=== PATIENT | male | born 1960 | race Caucasian/White ===

== ENCOUNTER 2017-01-16 19:49 | Inpatient (IN) | payer OTHER ==
[~2017-01-16] VITALS: Ht 177.8 cm; Wt 73.0 kg
[~2017-01-16 19:49] MED LIST: LISI-360 PO; LORA-475 PO; NEXI40CA PO
[2017-01-16 21:00] VITALS: BP 145/77; PULSE 93; RESP 21; TEMP 98; O2SAT 97
[2017-01-16] MEDS ORDERED: HYDROmorphone HCL PF 2 MG/ML VIAL IV PUSH PRN (21:15)
[2017-01-16] MEDS ORDERED: cloNIDine HCL 0.1 MG TAB PO PRN (21:15)
[2017-01-16] MEDS ORDERED: NALOXONE HCL 0.4 MG/ML AMP IV PRN (21:15)
[2017-01-16] MEDS: LORazepam 1 MG TAB PO SCH (21:15)
[2017-01-16] MEDS ORDERED: ONDANSETRON HCL 4 MG/2 ML VIAL IVP PRN ×2 (21:15→22:00)
[2017-01-16] MEDS ORDERED: ACETAMINOPHEN 325 MG TAB PO PRN (21:15)
[2017-01-16] MEDS ORDERED: SODIUM CHLORIDE 0.9% FLUSH 10 ML FLUSH IV FLUSH PRN (21:15)
[2017-01-16] MEDS: busPIRone HCL 5 MG TAB PO SCH (22:23)
--- NOTE | 2017-01-16 22:30 | MH ---
cc: BRIONNA BRITO M.D. DATE OF ADMISSION: 01/16/2017 ADMITTING DIAGNOSIS: Acute kidney injury requiring hemodialysis, empyema status post decortication. HISTORY OF PRESENT ILLNESS: This 56 year-old white male well-known to the undersigned physician, has a history of hypertension, anxiety and gastroesophageal reflux disease. In mid November of this year he was in the [facility] on a vacation. He lost his balance on a boat and struck the left lateral posterior ribs on a piece of the boat. He had sudden onset of severe pain. He had no shortness of breath. It was difficult to find a comfortable position. He tried to continue with the vacation for a couple of days but the pain persisted. He saw a local physician who recommended the at he return to [place] as soon as possible. The patient was transported by air ambulance to the [facility] and was admitted to [facility] where he was found to have fractures of the left posterior 9th, 10th and 11th ribs, with an associated moderate size left hemothorax. There was near complete collapse of the left lower lobe. There was also a focal contusion of the anterior left upper lobe. The patient was admitted to the hospital, had a chest tube placed. He was given pain medications. After several days the chest tube was removed and he was discharged home. The patient states that initially he seemed to be doing better, however, he began to feel extremely fatigued. He was feeling lightheaded and had generalized weakness. The patient was in the [facility] to begin a program for alcohol addiction. He presented to the facility but he had such a low blood pressure they were unable to treat him. He was sent to the emergency department where he was found to be severely hypotensive. CT scan revealed a recurrent area of fluid accumulation in the left pleural space. He was admitted to the hospital where he ultimately underwent decortication for empyema. The patient was placed on IV antibiotics during the hospitalization. He seemed to be improving, however, following the decortication procedure, he developed acute kidney injury and had a creatinine of greater than 5.9. He subsequently was placed on hemodialysis. He has received four treatments of hemodialysis in the last two weeks. The patient still is having some fluid retention. He was started on Lasix 80 milligrams daily over the last several days and his urine output is improving. He states that he put out 1400 cc of urine yesterday. He has a PermaCath in the right subclavian area. The patient had contacted the undersigned physician on the day of admission and stated that he wanted to be transferred up to the [facility] to complete his treatment and to arrange outpatient hemodialysis. The undersigned physician spoke with the attending physician down in [place], and they did not feel that the patient was medically stable enough to be discharged home so they asked for a transfer. The patient has had recurrent anemia and has received three transfusions of packed red blood cells. His matty hemoglobin was 5.9. He did receive a transfusion yesterday and the last hemoglobin done earlier today was 8.9. He is on an iron supplement as well as thiamine and folic acid. He has been receiving erythropoietin with hemodialysis. The patient still complains of severe pain in the left chest. The pain is along the entire left lateral posterior chest wall. He has a large incision measuring approximately 12 cm in the left chest wall which is healing, and he had three chest tubes which were removed within the last couple of days. He has pain with any movement or deep breathing. The patient states he has been receiving narcotic analgesics at the other hospital and has been receiving nebulizer treatments and incentive spirometry. PAST MEDICAL HISTORY: The patient's past medical history is significant for: 1. Anxiety 2. Hypertension 3. Hyperlipidemia 4. Gastroesophageal reflux disease. 5. History of lower gastrointestinal hemorrhage. 6. He has a history of sleep apnea but he has not used a C-PAP in years. PAST SURGICAL HISTORY: His only surgery was the decortication procedure done within the last two weeks. CURRENT MEDICATIONS: 1. Tylenol 650 mg every 4 hours as needed for mild pain. 2. Percocet 5/325 mg 1-2 tablets every 4 hours as needed for pain. 3. Dilaudid 1 mg IV every 3 hours as needed for severe pain. 4. Metoprolol tartrate 25 mg twice daily. 5. Furosemide 80 mg daily. 6. Hydralazine 10 mg every 6 hours as needed for elevated systolic blood pressure. 7. Lorazepam 1 milligram, 1 tablet every 8 hours scheduled. 8. DuoNebs 1 unit dose every 6 hours scheduled. 9. Benadryl 12.5 mg IV every 6 hours as needed for pruritus. 10. Dicyclomine 10 milligrams, 1 tablet three times a day before meals. 11. Colace 100 mg twice daily. 12. Florastor 250 mg 1 capsule twice daily. 13. BuSpar 5 mg 1 tablet every 8 hours. 14. Temazepam 15 milligrams one tablet at bed time as needed for insomnia. 15. Escitalopram 10 milligrams one tablet daily. 16. Erythropoietin 10,000 units per mL. One mL every Sunday and Sunday subcutaneously. 17. Ferrous sulfate 325 milligrams every 8 hours. 18. Folic acid 1 milligram daily. 19. Multivitamin with minerals one daily. 20. Nephrocaps one tablet daily. 21. Nicoderm CQ 21 milligram patch, apply one patch daily. 22. Zofran 4 milligrams IV every 8 hours as needed for nausea and vomiting. 23. Thiamine 100 milligrams one tablet daily. ALLERGIES: NO KNOWN DRUG ALLERGIES. FAMILY HISTORY: Positive for father with prostate cancer and cataracts. Mother had osteoarthritis, diabetes, myocardial infarction, and hypertension. He has siblings with osteoarthritis, gout and hypertension. SOCIAL HISTORY: He is . He smokes one to two packs of cigarettes a day, but he has not smoked in the last three weeks. He was consuming 5-6 ounces of alcohol every day with greater amounts intermittently. He has not had any alcohol since mid November 2016. He currently lives alone. 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 REVIEW OF SYSTEMS The patient states he is having regular bowel movements. He has had no abdominal pain. He is voiding without difficulty. He has had no lateralizing deficits. No headaches, no visual changes, no difficulty swallowing. No GERD symptoms. No nausea or vomiting. He states that he has had some difficulty sleeping. He is anxious at times, however, he receives the Ativan which helps. PHYSICAL EXAMINATION: Vital signs: The patient's heart rate was 74, respirations 16, blood pressure was 145/84. Temperature afebrile. GENERAL: This is a well-developed, well-nourished middle-aged white male, in moderate distress due to left-sided chest pain with movement. HEENT: The pupils are equal round reactive to light. Extraocular movements intact. Sclerae anicteric. There is bilateral pterygia present. Nares are patent without discharge. Mouth and throat reveal moist mucous membranes. No erythema, exudates. Dentition is good. NECK: Supple without lymphadenopathy, JVD, bruits or thyromegaly. CARDIOVASCULAR: Regular rate and rhythm without murmurs, rubs or gallops. LUNGS: Clear to auscultation bilaterally without rales, rhonchi or wheezing. CHEST: The left chest wall reveals a 12 cm long incision along the lateral mid chest. It has Steri-Strips in place. There are there small incisions measuring approximately 1 to 2 cm that area consistent with the drain incisions. They are all healing well without erythema, edema, induration. ABDOMEN: Soft, nontender, nondistended. Bowel sounds present, no masses palpable. No hepatosplenomegaly. /RECTAL: Deferred. EXTREMITIES: Lower extremities reveal 2+ pulses, no clubbing, cyanosis or edema. No calf tenderness. No Homans' sign. SKIN: Warm and dry. No significant rashes or lesions. NEUROLOGIC: The patient is awake, alert, oriented x3. Speech intact. Cranial nerves intact. No lateralizing deficits. No short-term memory or cognitive deficits. Mood is good. Affect appropriate. LABORATORY DATA: CBC, CMP, UA are pending, as is CT scan of the chest. IMPRESSION AND PLAN 1. This 56 year-old white male is transferred from [facility] in [place], [place] to continue with treatment of his acute kidney injury requiring hemodialysis. I have consulted nephrology to assist with arranging for hemodialysis here at this facility and ultimately as an outpatient. The patient is making urine at this time. Will continue with the Lasix 80 milligrams daily. Will need to monitor renal failure and electrolytes. 2. Anemia. The patient has an anemia which is likely a combination due to acute kidney disease as well as from his recent surgery and the hemothorax. The patient received three previous transfusions, the last of which was performed yesterday. His last hemoglobin was 8.9 this morning. Will repeat H&H in the morning. He will continue with the iron supplement in the form of ferrous sulfate, thiamine and the folic acid. He was receiving erythropoietin twice weekly. Any orders for this medication, will defer to nephrology. 3. Left-sided rib fractures, status post hemothorax and empyema. The patient is status post decortication. His wound appears to be healing well. Will order a CT scan of the chest to further evaluate for any reaccumulation of any fluid in the pleural space. I have consulted cardiothoracic surgery to give their opinion as to anything further needing to be done for the patient in this regard. The patient is still having significant pain in the left chest wall which is likely a combination of the procedure and the rib fractures. I have ordered oxycodone on a scheduled basis every six hours and then will provide him with Dilaudid for breakthrough pain. Will need to establish his analgesic need in order to control his pain. I have encouraged the patient to continue with incentive spirometry and will continue with the nebulizer treatments as he was receiving at the other facility. 4. History of anxiety disorder. The patient was normally receiving Lorazepam 2 milligrams 3x a day, however, with his renal failure, his dosage was apparently reduced at the previous facility. I am going to continue lorazepam 1 milligram every 12 hours. The patient also was receiving Escitalopram at the other facility. Will continue with 10 milligrams daily. 5. History of GERD. The patient has not been receiving any PPI and seems to be asymptomatic at this time. Will hold the PPI for now. 6. Hypertension. The patient is receiving metoprolol. He states that his blood pressure has been variable depending on his level of pain. I have ordered the metoprolol tartrate 25 milligrams twice daily and some clonidine to use as needed for systolic blood pressure greater than 160. He is also receiving the furosemide which should help his blood pressure. 7. Constipation. The patient is at high-risk for constipation due to the narcotic analgesics. At this point will provide Colace twice daily and if necessary provide additional laxatives. 8. DVT prophylaxis. The patient is recently status post surgery on the left chest wall. I will discuss with cardiothoracic surgery. If they feel that he is a candidate for anticoagulation in the form of Lovenox, I am concerned because of his recent hemothorax, however, will provide knee high, sequential compression devices for DVT prophylaxis. Will encourage the patient to be out of bed as much as possible. I have discussed the plan of care with the patient who expresses understanding and agreement. 75 minutes was spent face to face with the patient with over 50% of the time spent in counseling. MD SAVAGE Saucedo/DANDRE /9:29 PM /9:56 PM MTDGina
[2017-01-17] VITALS (8 sets, daily range): BP systolic 106–169; BP diastolic 66–92; PULSE 73–98; RESP 16–20; TEMP 98–98.9; O2SAT 94–99
--- NOTE | 2017-01-17 00:58 | RADRPT ---
EXAM DATE/TIME: 01/17/2017 00:32 [facility] COMPARISON: No previous studies available for comparison. INDICATIONS : S/P left decortication due to empyema. RADIATION DOSE: 4.52 CTDIvol (mGy) MEDICAL HISTORY : Cerebrovascular disease. Hypertension. Renal failure, chronic. GERD SURGICAL HISTORY : Left Thoracotomy ENCOUNTER: Initial ACUITY: 1 day PAIN SCALE: 0/10 LOCATION: Left chest TECHNIQUE: Volumetric scanning of the chest was performed. Using automated exposure control and adjustment of t he mA and/or kV according to patient size, radiation dose was kept as low as reasonably achievable to obtain optimal diagnostic quality images. FINDINGS: Multiple displaced rib fractures are seen on the left. There is a fluid air cavity in the left a pex measures 8.5 cm in size with scattered areas of gas bubbles within the pleural space on the left side in this patient status post decortication of empyema. Hazy groundglass opacities seen in right u pper lobe most likely inflammatory with mild involvement of right middle lobe. There is also parenchy mal infiltrate in left lower lobe. There is a small loculated pleural effusion particularly posterior ly. There are small lymph nodes in the region of the AP window the largest measures 1.6 cm in size. M ultiple hepatic cysts are seen. CONCLUSION: 1. Bilateral parenchymal infiltrates. 2. Air fluid cavity left apex with gas bubbles and slight pleural effusion on the left side. Vignesh Mancera MD on January 17, 2017 at 0:51 Board Certified Radiologist. This report was verified electronically.
[2017-01-17] MEDS ORDERED: HYDROmorphone HCL PF 2 MG/ML VIAL IV PUSH PRN (01:15)
[2017-01-17] MEDS: busPIRone HCL 5 MG TAB PO SCH ×3 (04:29→21:04)
[2017-01-17 04:53] LABS: BLOOD, URINE NEG (NEG); COMMENT (UR) CULT NOT INDICATED; CULTURE IF INDICATED CULT NOT INDICATED; GLUCOSE,URINE NEG (NEG); KETONE, URINE NEG (NEG); NITRITE,URINE NEG (NEG); PH, URINE 7.5 (5.0-8.5); URINE COLOR LIGHT-YELLOW (YELLW/STRAW)
[2017-01-17 07:46] LABS: AUTOMATED NEUTROPHIL # 5.9 TH/MM3 (1.8-7.7); BASOPHIL # 0.1 TH/MM3 (0-0.2); BASOPHIL % 1.2 % (0.0-2.0); EOSINOPHIL # 0.7 TH/MM3 (0-0.4); EOSINOPHIL % 7.4 % (0.0-4.0); HEMATOCRIT 25.9 % (39.0-51.0); HEMO FLAGS DIFF FINAL; LYMPH % 12.9 % (9.0-44.0); LYMPHOCYTE # 1.2 TH/MM3 (1.0-4.8); MEAN CELL VOLUME 86.8 FL (80.0-100.0); MEAN CORPUSCULAR HEMOGLOBIN 29.8 PG (27.0-34.0); MEAN CORPUSCULAR HGB CONC 34.4 % (32.0-36.0); NEUT % 65.5 % (16.0-70.0); PLATELET COUNT 332 TH/MM3 (150-450); RED BLOOD COUNT 2.98 MIL/MM3 (4.50-5.90); RED CELL DISTRIBUTION WIDTH 17.4 % (11.6-17.2)
[2017-01-17 08:26] LABS: ALT (GPT) 19 U/L (12-78); ANION GAP 10 MEQ/L (5-15); BICARBONATE 28.9 MEQ/L (21.0-32.0); BLOOD UREA NITROGEN 33 MG/DL (7-18); CHLORIDE 102 MEQ/L (98-107); GLOMERULAR FILTRATION RATE 14 ML/MIN (>89); POTASSIUM 3.6 MEQ/L (3.5-5.1); SODIUM (NA) 141 MEQ/L (136-145)
[2017-01-17] MEDS ORDERED: SODIUM CHLOR 0.9% 1000 ML INJ 1,000 ML IV PRN ×3 (08:26)
[2017-01-17] MEDS ORDERED: ONDANSETRON HCL 4 MG/2 ML VIAL IV PRN (08:30)
[2017-01-17] MEDS ORDERED: MANNITOL 12.5 GM/50 ML VIAL IV PRN (08:30)
[2017-01-17] MEDS ORDERED: cloNIDine HCL 0.1 MG TAB PO PRN (08:30)
[2017-01-17] MEDS ORDERED: diphenhydrAMINE HCL 25 MG CAP PO PRN (08:30)
[2017-01-17] MEDS ORDERED: GELATIN 12 MM/7 MM FOAM TOP PRN (08:30)
[2017-01-17] MEDS ORDERED: ACETAMINOPHEN 325 MG TAB PO PRN (08:30)
[2017-01-17] MEDS ORDERED: SODIUM CHLORIDE 0.9% FLUSH 10 ML FLUSH IV FLUSH PRN (08:30)
[2017-01-17] MEDS ORDERED: NITROGLYCERIN 0.4 MG SL 25 TABS/BTL SL PRN (08:30)
[2017-01-17] MEDS ORDERED: ALBUMIN HUMAN 25% 25 GM/100 ML BAGP IV PRN (08:30)
[2017-01-17] MEDS ORDERED: HEPARIN SODIUM - IV 10,000 UNITS/10 ML VIAL IVF PRN (08:30)
[2017-01-17 08:35] LABS: ALKALINE PHOSPHATASE 77 U/L (45-117); AST (GOT) 12 U/L (15-37); TOTAL BILIRUBIN ADULT 0.3 MG/DL (0.2-1.0)
[2017-01-17] MEDS: RESP: ALBUTEROL 2.5 MG/IPRATROPIUM 0.5 MG NEB (SCH) NEB ×3 (08:42→21:23)
[2017-01-17] MEDS ORDERED: METOPROLOL TARTRATE 25 MG TAB PO SCH (09:00)
[2017-01-17] MEDS: VITAMIN B CMPLX/VITC/FOLIC AC CAP PO SCH (09:54)
[2017-01-17] MEDS: FOLIC ACID 1 MG TAB PO SCH (09:54)
[2017-01-17] MEDS: DOCUSATE SODIUM 100 MG CAP PO SCH ×2 (09:54→21:03)
[2017-01-17] MEDS: ESCITALOPRAM OXALATE 10 MG TAB PO SCH (09:54)
[2017-01-17] MEDS: LORazepam 1 MG TAB PO SCH ×2 (09:55→21:04)
[2017-01-17] MEDS: FUROSEMIDE 80 MG TAB PO SCH (09:55)
[2017-01-17] MEDS: THIAMINE HCL 100 MG TAB PO SCH (09:55)
[2017-01-17] MEDS: FERROUS SULFATE 325 MG (65 MG ELEMENTAL IRON) TAB PO SCH ×2 (09:55→21:03)
[2017-01-17] MEDS: SODIUM CHLORIDE 0.9% FLUSH 10 ML FLUSH IV FLUSH SCH ×2 (09:56→21:04)
--- NOTE | 2017-01-17 12:50 | HHI.PR ---
Subjective Remarks Patient reports left chest pain was not adequately controlled overnight. Dilaudid helped but for only 1 hr. Voiding well. Has had 1500 cc UOP since admission. OOB in chair. BP higher this am. Denies SOB at rest, nausea or emesis. Current Medications Medications (Trade) Dose Ordered Sig/Jayson Route Start Time Stop Time Status Last Admin (NS Flush) 2 ml UNSCH PRN IV FLUSH 01/16/17 21:15 (NS Flush) 2 ml BID IV FLUSH 01/17/17 09:00 01/17/17 09:56 (Tylenol) 650 mg Q4H PRN PO 01/16/17 21:15 (Narcan Inj) 0.4 mg UNSCH PRN IV 01/16/17 21:15 (Colace) 100 mg BID PO 01/17/17 09:00 01/17/17 09:54 (Lasix) 80 mg DAILY PO 01/17/17 09:00 01/17/17 09:55 (Catapres) 0.1 mg Q8HR PRN PO 01/16/17 21:15 (Ativan) 1 mg Q12HR PO 01/16/17 21:15 01/17/17 09:55 (Buspar) 5 mg Q8HR PO 01/16/17 22:00 01/17/17 04:29 (Lexapro) 10 mg DAILY PO 01/17/17 09:00 01/17/17 09:54 (Ferrous Sulfate) 325 mg BID PO 01/17/17 09:00 01/17/17 09:55 (Folate) 1 mg DAILY PO 01/17/17 09:00 01/17/17 09:54 (Nephrocaps) 1 cap DAILY PO 01/17/17 09:00 01/17/17 09:54 (Vitamin B1) 100 mg DAILY PO 01/17/17 09:00 01/17/17 09:55 Ondansetron HCl 4 mg 4 mg Q8HR PRN IVP 01/16/17 22:00 (NS 1000 ml Inj) 1,000 ml @ 0 mls/hr Q0M PRN IV 01/17/17 08:26 Heparin Sodium (Porcine) 8000 units 8,000 units UNSCH PRN IVF 01/17/17 08:30 Sodium Chloride 1,000 ml @ 200 mls/hr Q5H PRN IV 01/17/17 08:26 (NS 1000 ml Inj) 1,000 ml @ 0 mls/hr Q0M PRN IV 01/17/17 08:26 (Mannitol Inj) 12.5 gm UNSCH PRN IV 01/17/17 08:30 (Albumin 25% Inj) 25 gm UNSCH PRN IV 01/17/17 08:30 (NS Flush) 5 ml UNSCH PRN IV FLUSH 01/17/17 08:30 (Heparin Inj) UNSCH PRN .XX 01/17/17 08:30 (Gentamicin (Dialysis) Inj) 20 mg UNSCH PRN IV 01/17/17 08:30 (Zofran Inj) 4 mg UNSCH PRN IV 01/17/17 08:30 (Tylenol) 650 mg UNSCH PRN PO 01/17/17 08:30 (Benadryl) 25 mg UNSCH PRN PO 01/17/17 08:30 (Nitrostat Sl) 0.4 mg UNSCH PRN SL 01/17/17 08:30 (Catapres) 0.1 mg UNSCH PRN PO 01/17/17 08:30 (Epogen Inj) 4,000 units UNSCH PRN IV 01/17/17 08:30 (Gelfoam 12 Mm/7 Mm Top) 1 foam UNSCH PRN TOP 01/17/17 08:30 (Dilaudid Pf Inj) 1 mg Q3HR PRN IV PUSH 01/17/17 14:00 (Lopressor) 50 mg Q12HR PO 01/17/17 21:00 (Roxicodone) 30 mg Q6H PO 01/17/17 12:30 Objective Vital Signs Date Time Temp Pulse Resp B/P Pulse Ox O2 Delivery O2 Flow Rate FiO2 01/17/17 08:00 98.2 80 18 162/92 99 01/17/17 04:00 98.9 88 20 169/81 96 01/17/17 00:00 98.2 90 20 144/74 97 01/16/17 21:00 98.0 93 21 145/77 97 I/O 01/16/17 01/16/17 01/16/17 01/17/17 01/17/17 01/17/17 07:00 15:00 23:00 07:00 15:00 23:00 Intake Total 240 ml 240 ml Output Total 600 ml Balance 240 ml -360 ml Intake Oral 240 ml 240 ml Output Urine Total 600 ml # Voids 1 CV: RRR Lungs: CTA Chest: tender lateral chest wall Abd: soft, NT, ND, +BS Ext: 1+ edema distally Result Diagram: 01/17/17 0606 01/17/17 0606 Imaging Last Impressions Chest CT 01/16/17 0000 Signed Impressions: Service Date/Time: Tuesday, January 17, 2017 00:32 - CONCLUSION: 1. Bilateral parenchymal infiltrates. 2. Air fluid cavity left apex with gas bubbles and slight pleural effusion on the left side. Vignesh Mancera MD Assessment and Plan Problem List: (1) Acute kidney injury Status: Acute Plan: Patient scheduled for hemodialysis later today. Awaiting nephrology consult. (2) Empyema Status: Acute Plan: S/P Decortication. Residual air-fluid loculation left apex. Appreciate CTS consult. Left chest tube placement has been ordered through invasive radiology. CT chest reveals pulmonary infiltrates, however, patient without SOB, fever or elevated WBC. Will hold antibiotics unless patient symptomatic (3) Hypertension Status: Chronic Plan: BP higher today. Increase Metoprolol tartrate to 50 mg bid. Cont Lasix. Clonidine prn (4) Ribs, multiple fractures Status: Acute Plan: Patient with multiple displaced left rib fractures. Still in pain. Will increase Oxycodone and provide Dilaudid prn breakthrough pain. (5) Generalized anxiety disorder Status: Chronic Plan: Continue Lorazepam. Dose has been decreased due to decreased renal function. Cont Buspirone and Escitalopram (6) Anemia Status: Acute Plan: Patient status post transfusions. Anemia multifactorial including blood loss from rib fracture and hemothorax and acute kidney injury. Patient receiving Iron, thiamine and B12 supplements. Will receive Procrit per Nephrology Problem Qualifiers (1) Hypertension: Qualified Code: I10 - Essential hypertension (2) Ribs, multiple fractures: Qualified Code: S22.42XG - Closed fracture of multiple ribs of left side with delayed healing, subsequent encounter (3) Anemia: Qualified Code: D50.8 - Other iron deficiency anemia Kashmir Zamudio MD January 17, 2017 12:50
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
[2017-01-17] MEDS: EPOETIN ALFA 4,000 UNITS/ML VIAL IV PRN (15:30)
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
[2017-01-17 16:08] LABS: APTT (PATIENT) 30.7 SEC (24.3-30.1); PROTHROMBIN TIME - PATIENT 11.6 SEC (9.8-11.6)
[2017-01-17] MEDS: GENTAMICIN SULFATE (DIALYSIS USE ONLY) 20 MG/2 ML VIAL IV PRN (17:02)
[2017-01-17] MEDS: HEPARIN SODIUM - IV 10,000 UNITS/10 ML VIAL PRN (17:02)
[2017-01-17] MEDS ORDERED: fentaNYL CITRATE 250 MCG/5 ML AMP ONE (18:21)
[2017-01-17] MEDS ORDERED: MIDAZOLAM HCL 5 MG/5 ML VIAL ONE (18:21)
[2017-01-17] MEDS ORDERED: *morphine SULFATE 8 MG/ML PERIprocedure ONLY ONE (19:45)
[2017-01-17] MEDS: METOPROLOL TARTRATE 50 MG TAB PO SCH (21:03)
[2017-01-17] MEDS ORDERED: LIDOCAINE HCL 1% 30 ML VIAL SQ ONE (21:23)
[2017-01-17] MEDS: HYDROmorphone HCL PF 2 MG/ML VIAL IV PUSH PRN (22:38)
[2017-01-18] VITALS (10 sets, daily range): BP systolic 102–117; BP diastolic 59–65; PULSE 66–86; RESP 12–20; TEMP 98.5–99.5; O2SAT 91–98
[2017-01-18] MEDS: RESP: ALBUTEROL 2.5 MG/IPRATROPIUM 0.5 MG NEB (SCH) NEB ×4 (04:22→20:26)
[2017-01-18] MEDS: HYDROmorphone HCL PF 2 MG/ML VIAL IV PUSH PRN ×4 (05:40→21:56)
[2017-01-18] MEDS: busPIRone HCL 5 MG TAB PO SCH ×3 (05:45→21:57)
--- NOTE | 2017-01-18 07:34 | RADRPT ---
EXAM DATE/TIME: 01/18/2017 06:17 [place] COMPARISON: CHEST SINGLE AP, November 14, 2010, 9:07. INDICATIONS : Short of breath, evaluate pneumothorax and chest tube on left. Patient is status post decortication s econdary to empyema. MEDICAL HISTORY : Hypertension. Renal insufficiency, chronic. Hypertension. SURGICAL HISTORY : left thoracotomy, chest tube ENCOUNTER: Subsequent ACUITY: 2 days PAIN SCORE: 2/10 LOCATION: Left chest FINDINGS: A single AP portable erect expiratory view of the chest was obtained. This demonstrates placement of a right sided double lumen central venous line with the tip projected over the superior vena cava. Th ere is a small bore left-sided chest tube with a pigtail catheter projected over the lung apex. There is no pneumothorax. There is hazy mild opacity in the left lung with mild volume loss. There is more consolidative opacity in the left lung apex. The heart size appears at the upper limits of normal. T he bony thorax is intact. There is a mild scoliosis of the thoracic and lumbar spine with degenerativ e changes. CONCLUSION: 1. Left-sided chest tube in place with no pneumothorax. There is volume loss and abnormal opacity in the left lung greatest in the upper lobe region. 2. Double lumen right sided central venous catheter in place. Michael Miller MD on January 18, 2017 at 7:30 Board Certified Radiologist. This report was verified electronically.
[2017-01-18] MEDS: METOPROLOL TARTRATE 50 MG TAB PO SCH ×2 (09:00→21:56)
[2017-01-18] MEDS: VITAMIN B CMPLX/VITC/FOLIC AC CAP PO SCH (09:00)
--- NOTE | 2017-01-18 09:04 | HHI.PR ---
Subjective Remarks Pain under better control. Slept better. PO intake good. Status post chest tube placement. UOP good. Current Medications Medications (Trade) Dose Ordered Sig/Jayson Route Start Time Stop Time Status Last Admin (NS Flush) 2 ml UNSCH PRN IV FLUSH 01/16/17 21:15 (NS Flush) 2 ml BID IV FLUSH 01/17/17 09:00 01/17/17 21:04 (Tylenol) 650 mg Q4H PRN PO 01/16/17 21:15 (Narcan Inj) 0.4 mg UNSCH PRN IV 01/16/17 21:15 (Colace) 100 mg BID PO 01/17/17 09:00 01/17/17 21:03 (Lasix) 80 mg DAILY PO 01/17/17 09:00 01/17/17 09:55 (Catapres) 0.1 mg Q8HR PRN PO 01/16/17 21:15 (Ativan) 1 mg Q12HR PO 01/16/17 21:15 01/17/17 21:04 (Buspar) 5 mg Q8HR PO 01/16/17 22:00 01/17/17 13:26 (Lexapro) 10 mg DAILY PO 01/17/17 09:00 01/17/17 09:54 (Ferrous Sulfate) 325 mg BID PO 01/17/17 09:00 01/17/17 21:03 (Folate) 1 mg DAILY PO 01/17/17 09:00 01/17/17 09:54 (Nephrocaps) 1 cap DAILY PO 01/17/17 09:00 01/17/17 09:54 (Vitamin B1) 100 mg DAILY PO 01/17/17 09:00 01/17/17 09:55 Ondansetron HCl 4 mg 4 mg Q8HR PRN IVP 01/16/17 22:00 (NS 1000 ml Inj) 1,000 ml @ 0 mls/hr Q0M PRN IV 01/17/17 08:26 Heparin Sodium (Porcine) 8000 units 8,000 units UNSCH PRN IVF 01/17/17 08:30 Sodium Chloride 1,000 ml @ 200 mls/hr Q5H PRN IV 01/17/17 08:26 (NS 1000 ml Inj) 1,000 ml @ 0 mls/hr Q0M PRN IV 01/17/17 08:26 (Mannitol Inj) 12.5 gm UNSCH PRN IV 01/17/17 08:30 (Albumin 25% Inj) 25 gm UNSCH PRN IV 01/17/17 08:30 (NS Flush) 5 ml UNSCH PRN IV FLUSH 01/17/17 08:30 (Heparin Inj) UNSCH PRN .XX 01/17/17 08:30 01/17/17 17:02 (Gentamicin (Dialysis) Inj) 20 mg UNSCH PRN IV 01/17/17 08:30 01/17/17 17:02 (Zofran Inj) 4 mg UNSCH PRN IV 01/17/17 08:30 (Tylenol) 650 mg UNSCH PRN PO 01/17/17 08:30 (Benadryl) 25 mg UNSCH PRN PO 01/17/17 08:30 (Nitrostat Sl) 0.4 mg UNSCH PRN SL 01/17/17 08:30 (Catapres) 0.1 mg UNSCH PRN PO 01/17/17 08:30 (Epogen Inj) 4,000 units UNSCH PRN IV 01/17/17 08:30 01/17/17 15:30 (Gelfoam 12 Mm/7 Mm Top) 1 foam UNSCH PRN TOP 01/17/17 08:30 (Dilaudid Pf Inj) 1 mg Q3HR PRN IV PUSH 01/17/17 14:00 01/18/17 05:40 (Lopressor) 50 mg Q12HR PO 01/17/17 21:00 01/17/17 21:03 (Roxicodone) 30 mg Q6H PO 01/17/17 12:30 01/18/17 06:58 Objective Vital Signs Date Time Temp Pulse Resp B/P Pulse Ox O2 Delivery O2 Flow Rate FiO2 01/18/17 06:10 14 01/18/17 04:29 98.5 70 17 114/63 98 01/18/17 04:00 Nasal Cannula 3.00 01/18/17 00:00 Nasal Cannula 3.00 01/17/17 22:00 98.7 73 16 106/66 97 01/17/17 21:23 97 Nasal Cannula 3.00 01/17/17 21:00 97 Nasal Cannula 3.00 01/17/17 20:30 98.1 92 18 159/82 97 Nasal Cannula 2 01/17/17 20:15 90 16 142/69 96 Nasal Cannula 2 01/17/17 20:00 88 18 142/69 97 Nasal Cannula 2 01/17/17 20:00 98.6 98 18 153/79 97 01/17/17 19:45 87 20 146/79 97 Nasal Cannula 2 01/17/17 19:37 98.9 90 20 148/83 93 Room Air 01/17/17 12:00 98.0 76 18 136/72 94 I/O 01/17/17 01/17/17 01/17/17 01/18/17 01/18/17 01/18/17 07:00 15:00 23:00 07:00 15:00 23:00 Intake Total 240 ml 360 ml 500 ml 520 ml Output Total 600 ml 600 ml 2080 ml 460 ml Balance -360 ml -240 ml -1580 ml 60 ml Intake Oral 240 ml 360 ml 500 ml 520 ml IV Total 0 ml Output Urine Total 600 ml 600 ml 450 ml Chest Tube Drainage Total 80 ml 10 ml Hemodialysis 2000 ml # Voids 0 0 # Bowel Movements 0 0 0 CV: RRR Lungs: CTA Abd: soft, NT, ND, +BS Result Diagram: 01/17/1760501/17/17605 Assessment and Plan Problem List: (1) Acute kidney injury Status: Acute Plan: Appreciate renal consult. Cont hemodialysis. UOP improved with Lasix. BMP pending (2) Empyema Status: Acute Plan: S/P Decortication. S/P chest tube placement. Ct management per CTS (3) Hypertension Status: Chronic Plan: BP under good control with current medication (4) Ribs, multiple fractures Status: Acute Plan: Pain under better control. Cont incentive spirometry. OOB (5) Generalized anxiety disorder Status: Chronic Plan: Continue Lorazepam. Dose has been decreased due to decreased renal function. Cont Buspirone and Escitalopram (6) Anemia Status: Acute Plan: Patient status post transfusions. Anemia multifactorial including blood loss from rib fracture and hemothorax and acute kidney injury. Patient receiving Iron, thiamine and B12 supplements. Will receive Procrit per Nephrology Problem Qualifiers (1) Hypertension: Qualified Code: I10 - Essential hypertension (2) Ribs, multiple fractures: Qualified Code: S22.42XG - Closed fracture of multiple ribs of left side with delayed healing, subsequent encounter (3) Anemia: Qualified Code: D50.8 - Other iron deficiency anemia Kashmir Zamudio MD January 18, 2017 09:04
[2017-01-18 09:47] LABS: BICARBONATE 32.6 MEQ/L (21.0-32.0); POTASSIUM 3.8 MEQ/L (3.5-5.1)
[2017-01-18] MEDS: FERROUS SULFATE 325 MG (65 MG ELEMENTAL IRON) TAB PO SCH ×2 (09:48→21:56)
[2017-01-18] MEDS: ESCITALOPRAM OXALATE 10 MG TAB PO SCH (09:48)
[2017-01-18] MEDS: FOLIC ACID 1 MG TAB PO SCH (09:48)
[2017-01-18] MEDS: THIAMINE HCL 100 MG TAB PO SCH (09:48)
[2017-01-18] MEDS: FUROSEMIDE 80 MG TAB PO SCH (09:49)
[2017-01-18] MEDS: SODIUM CHLORIDE 0.9% FLUSH 10 ML FLUSH IV FLUSH SCH ×2 (09:49→21:57)
[2017-01-18] MEDS: DOCUSATE SODIUM 100 MG CAP PO SCH ×2 (09:49→21:00)
[2017-01-18] MEDS: LORazepam 1 MG TAB PO SCH ×2 (09:49→21:56)
--- NOTE | 2017-01-18 10:03 | RADRPT ---
EXAM DATE/TIME: 01/17/2017 18:37 INDICATIONS : left chest fluid, possible empyema SEDATION TIME: 30 minutes MEDICATION(S): 1.) 3 mg midazolam (Versed) IV 2.) 150 mcg fentanyl (Sublimaze) IV DEVICE(S): 1.) 10 Fr [place] Total volume of8 cc of cloudy, red fluid was remoted. Fluid was sent for laboratory ordered studies. MEDICAL HISTORY : Hypertension. SURGICAL HISTORY : decortication ENCOUNTER: Initial ACUITY: 1 day PAIN SCORE: 8/10 LOCATION: Left chest PROCEDURE: 1.) Conscious sedation with continuous EKG and oximetry monitoring. PROCEDURE : 1. CT guided chest tube placement. 2. Conscious sedation with continuous EKG and oximetry monitoring. The risks, benefits and alternatives to the procedure were explained and verbal and written consent w as obtained. The site was prepped in sterile fashion. Full sterile technique was used, including ca p, mask, sterile gloves and gown and a large sterile sheet. Hand hygiene and 2% chlorhexidine and/or betadine/alcohol prep was utilized per protocol for cutaneous antisepsis. The skin and subcutaneous tissues were infiltrated with local anesthetic solution. Using automated exposure control and adjus tment of the mA and/or kV according to patient size, radiation dose was kept as low as reasonably ach ievable to obtain optimal diagnostic quality images. With CT guidance the chest was punctured and the prescribed catheter was placed in the left lung apex fluid and air collection. Wall suction was applied. Post procedure images demonstrate satisfactory position of the tube. The catheter was sutured in place and a Percu-Stay was applied. Conscious sedation was performed with the prescribed dosages and duration as above. The patient mone ated the procedure well and there were no complications. EKG and oximetry remained stable throughout the procedure. The patient was sent to post anesthesia recovery in stable condition. CONCLUSION: Uncomplicated chest tube placement for empyema as above. Francisco Whitt MD on January 18, 2017 at 9:59 Board Certified Radiologist. This report was verified electronically.
--- NOTE | 2017-01-18 12:46 | HHI.NPPN ---
Subjective Renal Failure: Acute History of Present Illness 56 year old with Empyema L lung ARF on Hemodialysis Additional Remarks s/p CT L side Review of Systems Musculoskeletal MS: Pain/Stiffness Objective Data Data 01/17/17 01/18/17 19:00 07:00 Intake Total 360 ml 1020 ml Output Total 2600 ml 540 ml Balance -2240 ml 480 ml Intake Oral 360 ml 1020 ml IV Total 0 ml Output Urine Total 600 ml 450 ml Chest Tube Drainage Total 90 ml Hemodialysis 2000 ml # Voids 0 # Bowel Movements 0 0 Vital Signs Date Time Temp Pulse Resp B/P Pulse Ox O2 Delivery O2 Flow Rate FiO2 01/18/17 12:28 95 Nasal Cannula 3.00 01/18/17 12:00 98.5 73 12 109/59 95 01/18/17 08:00 98.5 66 12 111/65 97 01/18/17 06:10 14 01/18/17 04:29 98.5 70 17 114/63 98 01/18/17 04:00 Nasal Cannula 3.00 01/18/17 00:00 Nasal Cannula 3.00 01/17/17 22:00 98.7 73 16 106/66 97 01/17/17 21:23 97 Nasal Cannula 3.00 01/17/17 21:00 97 Nasal Cannula 3.00 01/17/17 20:30 98.1 92 18 159/82 97 Nasal Cannula 2 01/17/17 20:15 90 16 142/69 96 Nasal Cannula 2 01/17/17 20:00 88 18 142/69 97 Nasal Cannula 2 01/17/17 20:00 98.6 98 18 153/79 97 01/17/17 19:45 87 20 146/79 97 Nasal Cannula 2 01/17/17 19:37 98.9 90 20 148/83 93 Room Air -: 01/17/17 0606 01/18/17 0000 Microbiology 01/17/17 Gram Stain - Final, Resulted 01/17/17 Body Fluid Culture - Preliminary, Resulted NO GROWTH IN 24 HOURS. Physical Exam General Appearance: Well Developed, Well Nourished Neck Neck Exam: Neck Supple Pulmonary Resp Exam: Decreased Bases Cardiology CV Exam: Regular, Normal Sinus Rhythm Gastrointestinal/Abdomen GI Exam: Soft, Non-Tender, Bowel Sounds Present Integumentary Skin Exam: Clear Extremeties Extremities Exam: No Edema Neurologic Neuro Exam: Alert Assessment/Plan Problem List: (1) Acute kidney injury Plan: He required hemodialysis and will maintain him on Sunday, Sunday and Sunday continue to observe for further recovery HD done yesterday L CT in place follow cultures no growth so far (2) Ribs, multiple fractures Plan: Patient is getting a chest tube (3) Empyema Plan: Recently treated the plan is to place a chest tube (4) Hypertension Plan: Continue monitor while in the hospital Problem Qualifiers (1) Ribs, multiple fractures: Qualified Code: S22.42XG - Closed fracture of multiple ribs of left side with delayed healing, subsequent encounter (2) Hypertension: Qualified Code: I10 - Essential hypertension Haider James MD January 18, 2017 12:46
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
[2017-01-19] VITALS (7 sets, daily range): BP systolic 110–135; BP diastolic 52–88; PULSE 76–88; RESP 12–20; TEMP 98.1–98.7; O2SAT 91–96
[2017-01-19] MEDS: RESP: ALBUTEROL 2.5 MG/IPRATROPIUM 0.5 MG NEB (SCH) NEB ×4 (03:49→20:53)
[2017-01-19] MEDS: busPIRone HCL 5 MG TAB PO SCH ×3 (06:00→21:38)
[2017-01-19 07:00] LABS: AUTOMATED NEUTROPHIL # 7.3 TH/MM3 (1.8-7.7); BASOPHIL # 0.1 TH/MM3 (0-0.2); BASOPHIL % 0.6 % (0.0-2.0); EOSINOPHIL # 0.6 TH/MM3 (0-0.4); EOSINOPHIL % 5.9 % (0.0-4.0); HEMATOCRIT 26.7 % (39.0-51.0); HEMO FLAGS DIFF FINAL; LYMPH % 11.8 % (9.0-44.0); LYMPHOCYTE # 1.3 TH/MM3 (1.0-4.8); MEAN CELL VOLUME 87.6 FL (80.0-100.0); MEAN CORPUSCULAR HEMOGLOBIN 30.3 PG (27.0-34.0); MEAN CORPUSCULAR HGB CONC 34.6 % (32.0-36.0); MONO % 13.8 % (0.0-8.0); NEUT % 67.9 % (16.0-70.0); PLATELET COUNT 337 TH/MM3 (150-450); RED BLOOD COUNT 3.05 MIL/MM3 (4.50-5.90); RED CELL DISTRIBUTION WIDTH 16.8 % (11.6-17.2); WHITE BLOOD COUNT 10.7 TH/MM3 (4.0-11.0)
[2017-01-19 07:23] LABS: BICARBONATE 32.7 MEQ/L (21.0-32.0); POTASSIUM 3.8 MEQ/L (3.5-5.1)
[2017-01-19] MEDS: FUROSEMIDE 80 MG TAB PO SCH (08:14)
[2017-01-19] MEDS: FERROUS SULFATE 325 MG (65 MG ELEMENTAL IRON) TAB PO SCH ×2 (08:14→21:37)
[2017-01-19] MEDS: VITAMIN B CMPLX/VITC/FOLIC AC CAP PO SCH (08:14)
[2017-01-19] MEDS: ESCITALOPRAM OXALATE 10 MG TAB PO SCH (08:14)
[2017-01-19] MEDS: FOLIC ACID 1 MG TAB PO SCH (08:14)
[2017-01-19] MEDS: THIAMINE HCL 100 MG TAB PO SCH (08:14)
[2017-01-19] MEDS: METOPROLOL TARTRATE 50 MG TAB PO SCH ×2 (08:14→21:37)
[2017-01-19] MEDS: DOCUSATE SODIUM 100 MG CAP PO SCH ×2 (08:14→21:00)
[2017-01-19] MEDS: LORazepam 1 MG TAB PO SCH ×2 (08:15→21:37)
[2017-01-19] MEDS: SODIUM CHLORIDE 0.9% FLUSH 10 ML FLUSH IV FLUSH SCH ×2 (08:15→21:37)
[2017-01-19] MEDS: HYDROmorphone HCL PF 2 MG/ML VIAL IV PUSH PRN ×2 (08:36→21:38)
--- NOTE | 2017-01-19 12:48 | HHI.NPPN ---
Subjective Renal Failure: Acute History of Present Illness 56 year old with Empyema L lung ARF on Hemodialysis Additional Remarks s/p CT L side Review of Systems Musculoskeletal MS: Pain/Stiffness Objective Data Data 01/18/17 01/19/17 19:00 07:00 Intake Total 480 ml 240 ml Output Total 1025 ml 570 ml Balance -545 ml -330 ml Intake Oral 480 ml 240 ml IV Total 0 ml Output Urine Total 1025 ml 570 ml Chest Tube Drainage Total 0 ml 0 ml # Bowel Movements 2 0 Vital Signs Date Time Temp Pulse Resp B/P Pulse Ox O2 Delivery O2 Flow Rate FiO2 01/19/17 12:05 98.6 81 12 119/66 91 01/19/17 07:10 98.7 85 12 132/88 93 01/19/17 04:45 98.4 88 18 110/52 96 01/18/17 23:05 99.5 76 18 115/59 94 01/18/17 20:25 98 2.00 01/18/17 19:43 98.7 75 18 117/64 97 01/18/17 17:00 17 96 01/18/17 16:00 98.9 86 20 116/60 91 -: 01/19/17 0611 01/19/17 0611 Physical Exam General Appearance: Well Developed, Well Nourished Neck Neck Exam: Neck Supple Pulmonary Resp Exam: Decreased Bases Cardiology CV Exam: Regular, Normal Sinus Rhythm Gastrointestinal/Abdomen GI Exam: Soft, Non-Tender, Bowel Sounds Present Integumentary Skin Exam: Clear Extremeties Extremities Exam: No Edema Neurologic Neuro Exam: Alert Assessment/Plan Problem List: (1) Acute kidney injury Plan: He required hemodialysis and will maintain him on Sunday, Sunday and Sunday continue to observe for further recovery HD next today doing well cr 4.1 cut Lasix 40 mg a day L CT in place follow cultures no growth so far 1315 pm seen at dialysis 1 L UF (2) Ribs, multiple fractures Plan: Patient is getting a chest tube (3) Empyema Plan: Recently treated the plan is to place a chest tube (4) Hypertension Plan: Continue monitor while in the hospital Problem Qualifiers (1) Ribs, multiple fractures: Qualified Code: S22.42XG - Closed fracture of multiple ribs of left side with delayed healing, subsequent encounter (2) Hypertension: Qualified Code: I10 - Essential hypertension Haider James MD January 19, 2017 12:48
--- NOTE | 2017-01-19 12:56 | RADRPT ---
EXAM DATE/TIME: 01/19/2017 12:25 [place] COMPARISON: CHEST EXPIRATION ONLY, January 18, 2017, 6:17. CT GUIDED CHEST TUBE PLACEMENT LEFT, January 17, 2017, 18:37. INDICATIONS : Short of breath, chest pain, follow up volume loss and opacity in left upper chest MEDICAL HISTORY : Hypertension. SURGICAL HISTORY : left chest tube ENCOUNTER: Subsequent ACUITY: 3 days PAIN SCORE: 2/10 LOCATION: Left chest FINDINGS: Small caliber chest tube remains in loculated fluid collection upper left hemithorax. Bilateral patch y air space disease relatively stable. Right-sided dual-lumen catheter tip in superior vena cava. No significant change compared with January 18. CONCLUSION: Left chest tube at left apex without pneumothorax. Patchy bilateral airspace disease. No significant change from January 18. Julian Bello MD on January 19, 2017 at 12:52 Board Certified Radiologist. This report was verified electronically.
[2017-01-19] MEDS ORDERED: FUROSEMIDE 40 MG TAB PO SCH (13:00)
--- NOTE | 2017-01-19 14:36 | HHI.PR ---
Subjective Remarks Patient seen in dialysis. Pain under reasonable control. Using Dilaudid prn. Complains of some itching but no rash. PO intake good. UOP good. +BM Current Medications Medications (Trade) Dose Ordered Sig/Jayson Route Start Time Stop Time Status Last Admin (NS Flush) 2 ml UNSCH PRN IV FLUSH 01/16/17 21:15 (NS Flush) 2 ml BID IV FLUSH 01/17/17 09:00 01/19/17 08:15 (Tylenol) 650 mg Q4H PRN PO 01/16/17 21:15 (Narcan Inj) 0.4 mg UNSCH PRN IV 01/16/17 21:15 (Colace) 100 mg BID PO 01/17/17 09:00 01/19/17 08:14 (Catapres) 0.1 mg Q8HR PRN PO 01/16/17 21:15 (Ativan) 1 mg Q12HR PO 01/16/17 21:15 01/19/17 08:15 (Buspar) 5 mg Q8HR PO 01/16/17 22:00 01/18/17 13:05 (Lexapro) 10 mg DAILY PO 01/17/17 09:00 01/19/17 08:14 (Ferrous Sulfate) 325 mg BID PO 01/17/17 09:00 01/19/17 08:14 (Folate) 1 mg DAILY PO 01/17/17 09:00 01/19/17 08:14 (Nephrocaps) 1 cap DAILY PO 01/17/17 09:00 01/19/17 08:14 (Vitamin B1) 100 mg DAILY PO 01/17/17 09:00 01/19/17 08:14 Ondansetron HCl 4 mg 4 mg Q8HR PRN IVP 01/16/17 22:00 (NS 1000 ml Inj) 1,000 ml @ 0 mls/hr Q0M PRN IV 01/17/17 08:26 Heparin Sodium (Porcine) 8000 units 8,000 units UNSCH PRN IVF 01/17/17 08:30 Sodium Chloride 1,000 ml @ 200 mls/hr Q5H PRN IV 01/17/17 08:26 (NS 1000 ml Inj) 1,000 ml @ 0 mls/hr Q0M PRN IV 01/17/17 08:26 (Mannitol Inj) 12.5 gm UNSCH PRN IV 01/17/17 08:30 (Albumin 25% Inj) 25 gm UNSCH PRN IV 01/17/17 08:30 (NS Flush) 5 ml UNSCH PRN IV FLUSH 01/17/17 08:30 (Heparin Inj) UNSCH PRN .XX 01/17/17 08:30 01/17/17 17:02 (Gentamicin (Dialysis) Inj) 20 mg UNSCH PRN IV 01/17/17 08:30 01/17/17 17:02 (Zofran Inj) 4 mg UNSCH PRN IV 01/17/17 08:30 (Tylenol) 650 mg UNSCH PRN PO 01/17/17 08:30 (Benadryl) 25 mg UNSCH PRN PO 01/17/17 08:30 (Nitrostat Sl) 0.4 mg UNSCH PRN SL 01/17/17 08:30 (Catapres) 0.1 mg UNSCH PRN PO 01/17/17 08:30 (Epogen Inj) 4,000 units UNSCH PRN IV 01/17/17 08:30 01/17/17 15:30 (Gelfoam 12 Mm/7 Mm Top) 1 foam UNSCH PRN TOP 01/17/17 08:30 (Dilaudid Pf Inj) 1 mg Q3HR PRN IV PUSH 01/17/17 14:00 01/19/17 08:36 (Lopressor) 50 mg Q12HR PO 01/17/17 21:00 01/19/17 08:14 (Roxicodone) 30 mg Q6H PO 01/17/17 12:30 01/19/17 12:26 (Lasix) 40 mg DAILY PO 01/20/17 09:00 Objective Vital Signs Date Time Temp Pulse Resp B/P Pulse Ox O2 Delivery O2 Flow Rate FiO2 01/19/17 12:05 98.6 81 12 119/66 91 01/19/17 07:10 98.7 85 12 132/88 93 01/19/17 04:45 98.4 88 18 110/52 96 01/18/17 23:05 99.5 76 18 115/59 94 01/18/17 20:25 98 2.00 01/18/17 19:43 98.7 75 18 117/64 97 01/18/17 17:00 17 96 01/18/17 16:00 98.9 86 20 116/60 91 I/O 01/18/17 01/18/17 01/18/17 01/19/17 01/19/17 01/19/17 06:59 14:59 22:59 06:59 14:59 22:59 Intake Total 520 ml 480 ml 0 ml 240 ml Output Total 460 ml 1025 ml 270 ml 300 ml 600 ml Balance 60 ml -545 ml -270 ml -60 ml -600 ml Intake Oral 520 ml 480 ml 0 ml 240 ml IV Total 0 ml Output Urine Total 450 ml 1025 ml 270 ml 300 ml 600 ml Chest Tube Drainage Total 10 ml 0 ml 0 ml # Voids 0 # Bowel Movements 0 2 0 0 CV: RRR Lungs: CTA Ext: no edema or calf tenderness Result Diagram: 01/19/1761001/19/17610 Assessment and Plan Problem List: (1) Acute kidney injury Status: Acute Plan: Cont HD per nephrology. (2) Empyema Status: Acute Plan: S/P Decortication. S/P chest tube placement. I spoke with Dr Whitt of interventional radiology earlier. Patient is at risk of reaccumulating pleural fluid if chest tube removed today. We have decided to continue CT until Sunday. Dr Whitt will speak with CTS about instilling talc vs doxycycline prior to discontinuing CT to decrease chance of recurrence (3) Hypertension Status: Chronic Plan: BP under good control with current medication (4) Ribs, multiple fractures Status: Acute Plan: Pain under better control. Cont incentive spirometry. OOB (5) Generalized anxiety disorder Status: Chronic Plan: Continue Lorazepam. Dose has been decreased due to decreased renal function. Cont Buspirone and Escitalopram (6) Anemia Status: Acute Plan: Patient status post transfusions. Anemia multifactorial including blood loss from rib fracture and hemothorax and acute kidney injury. Patient receiving Iron, thiamine and B12 supplements. Will receive Procrit per Nephrology Problem Qualifiers (1) Hypertension: Qualified Code: I10 - Essential hypertension (2) Ribs, multiple fractures: Qualified Code: S22.42XG - Closed fracture of multiple ribs of left side with delayed healing, subsequent encounter (3) Anemia: Qualified Code: D50.8 - Other iron deficiency anemia Kashmir Zamudio MD January 19, 2017 14:36
[2017-01-19] MEDS: EPOETIN ALFA 4,000 UNITS/ML VIAL IV PRN (15:00)
[2017-01-19] MEDS ORDERED: hydrOXYzine HCL 25 MG TAB PO PRN (15:00)
[2017-01-19] MEDS: GENTAMICIN SULFATE (DIALYSIS USE ONLY) 20 MG/2 ML VIAL IV PRN (16:00)
[2017-01-19] MEDS: HEPARIN SODIUM - IV 10,000 UNITS/10 ML VIAL PRN (16:00)
[2017-01-20] VITALS (7 sets, daily range): BP systolic 112–144; BP diastolic 56–80; PULSE 63–82; RESP 20; TEMP 97.5–98.8; O2SAT 91–97
[2017-01-20] MEDS: HYDROmorphone HCL PF 2 MG/ML VIAL IV PUSH PRN ×3 (03:35→21:15)
[2017-01-20] MEDS: RESP: ALBUTEROL 2.5 MG/IPRATROPIUM 0.5 MG NEB (SCH) NEB ×4 (04:22→21:04)
[2017-01-20] MEDS: busPIRone HCL 5 MG TAB PO SCH ×3 (06:00→21:14)
[2017-01-20] MEDS: ESCITALOPRAM OXALATE 10 MG TAB PO SCH (09:24)
[2017-01-20] MEDS: THIAMINE HCL 100 MG TAB PO SCH (09:24)
[2017-01-20] MEDS: VITAMIN B CMPLX/VITC/FOLIC AC CAP PO SCH (09:24)
[2017-01-20] MEDS: METOPROLOL TARTRATE 50 MG TAB PO SCH ×2 (09:24→21:14)
[2017-01-20] MEDS: FOLIC ACID 1 MG TAB PO SCH (09:25)
[2017-01-20] MEDS: DOCUSATE SODIUM 100 MG CAP PO SCH ×2 (09:25→21:14)
[2017-01-20] MEDS: LORazepam 1 MG TAB PO SCH ×2 (09:25→21:14)
[2017-01-20] MEDS: FUROSEMIDE 40 MG TAB PO SCH (09:25)
[2017-01-20] MEDS: FERROUS SULFATE 325 MG (65 MG ELEMENTAL IRON) TAB PO SCH ×2 (09:25→21:14)
[2017-01-20] MEDS: SODIUM CHLORIDE 0.9% FLUSH 10 ML FLUSH IV FLUSH SCH ×2 (09:27→21:14)
--- NOTE | 2017-01-20 10:48 | HHI.PR ---
Subjective Remarks Pain under better control. Still uses prn Dilaudid. UOP good. Ambulated with PT. Denied SOB with O2. PO intake adequate. BP under adequate control. Current Medications Medications (Trade) Dose Ordered Sig/Jayson Route Start Time Stop Time Status Last Admin (NS Flush) 2 ml UNSCH PRN IV FLUSH 01/16/17 21:15 (NS Flush) 2 ml BID IV FLUSH 01/17/17 09:00 01/20/17 09:27 (Tylenol) 650 mg Q4H PRN PO 01/16/17 21:15 (Narcan Inj) 0.4 mg UNSCH PRN IV 01/16/17 21:15 (Colace) 100 mg BID PO 01/17/17 09:00 01/19/17 08:14 (Catapres) 0.1 mg Q8HR PRN PO 01/16/17 21:15 (Ativan) 1 mg Q12HR PO 01/16/17 21:15 01/20/17 09:25 (Buspar) 5 mg Q8HR PO 01/16/17 22:00 01/18/17 13:05 (Lexapro) 10 mg DAILY PO 01/17/17 09:00 01/20/17 09:24 (Ferrous Sulfate) 325 mg BID PO 01/17/17 09:00 01/20/17 09:25 (Folate) 1 mg DAILY PO 01/17/17 09:00 01/20/17 09:25 (Nephrocaps) 1 cap DAILY PO 01/17/17 09:00 01/20/17 09:24 (Vitamin B1) 100 mg DAILY PO 01/17/17 09:00 01/20/17 09:24 Ondansetron HCl 4 mg 4 mg Q8HR PRN IVP 01/16/17 22:00 (NS 1000 ml Inj) 1,000 ml @ 0 mls/hr Q0M PRN IV 01/17/17 08:26 Heparin Sodium (Porcine) 8000 units 8,000 units UNSCH PRN IVF 01/17/17 08:30 Sodium Chloride 1,000 ml @ 200 mls/hr Q5H PRN IV 01/17/17 08:26 (NS 1000 ml Inj) 1,000 ml @ 0 mls/hr Q0M PRN IV 01/17/17 08:26 (Mannitol Inj) 12.5 gm UNSCH PRN IV 01/17/17 08:30 (Albumin 25% Inj) 25 gm UNSCH PRN IV 01/17/17 08:30 (NS Flush) 5 ml UNSCH PRN IV FLUSH 01/17/17 08:30 (Heparin Inj) UNSCH PRN .XX 01/17/17 08:30 01/19/17 16:00 (Gentamicin (Dialysis) Inj) 20 mg UNSCH PRN IV 01/17/17 08:30 01/19/17 16:00 (Zofran Inj) 4 mg UNSCH PRN IV 01/17/17 08:30 (Tylenol) 650 mg UNSCH PRN PO 01/17/17 08:30 (Benadryl) 25 mg UNSCH PRN PO 01/17/17 08:30 (Nitrostat Sl) 0.4 mg UNSCH PRN SL 01/17/17 08:30 (Catapres) 0.1 mg UNSCH PRN PO 01/17/17 08:30 (Epogen Inj) 4,000 units UNSCH PRN IV 01/17/17 08:30 01/19/17 15:00 (Gelfoam 12 Mm/7 Mm Top) 1 foam UNSCH PRN TOP 01/17/17 08:30 (Dilaudid Pf Inj) 1 mg Q3HR PRN IV PUSH 01/17/17 14:00 01/20/17 03:35 (Lopressor) 50 mg Q12HR PO 01/17/17 21:00 01/20/17 09:24 (Roxicodone) 30 mg Q6H PO 01/17/17 12:30 01/20/17 06:57 (Lasix) 40 mg DAILY PO 01/20/17 09:00 01/20/17 09:25 (Atarax) 25 mg Q8H PRN PO 01/19/17 15:00 01/19/17 18:24 Objective Vital Signs Date Time Temp Pulse Resp B/P Pulse Ox O2 Delivery O2 Flow Rate FiO2 01/20/17 08:00 98.5 82 20 144/80 94 01/20/17 04:00 Nasal Cannula 2.00 01/20/17 04:00 98.3 78 20 122/61 97 01/20/17 00:00 98.0 63 20 122/61 94 01/20/17 00:00 Nasal Cannula 2.00 01/19/17 20:53 92 Nasal Cannula 2.00 01/19/17 20:30 98.4 76 20 129/70 94 01/19/17 19:30 Nasal Cannula 3.00 01/19/17 15:45 98.1 83 12 135/71 94 01/19/17 12:05 98.6 81 12 119/66 91 I/O 01/19/17 01/19/17 01/19/17 01/20/17 01/20/17 01/20/17 07:00 15:00 23:00 07:00 15:00 23:00 Intake Total 240 ml 240 ml 360 ml Output Total 300 ml 600 ml 1925 ml 5 ml Balance -60 ml -600 ml -1685 ml 355 ml Intake Oral 240 ml 240 ml 360 ml Output Urine Total 300 ml 600 ml 925 ml Chest Tube Drainage Total 0 ml 5 ml Hemodialysis 1000 ml # Voids 2 1 # Bowel Movements 0 CV: RRR Lungs: CTA Chest: left upper chest CT in place. Right subclavian Vascath Ext; No edema Result Diagram: 01/19/1761001/19/17610 Assessment and Plan Problem List: (1) Acute kidney injury Status: Acute Plan: Cont HD per nephrology. (2) Empyema Status: Acute Plan: S/P Decortication. S/P chest tube placement. I spoke with Dr Whitt of interventional radiology earlier. Plan is to DC CT on Mon or Tue. O2 sat room air was 92-93%. Change O2 to qhs (3) Hypertension Status: Chronic Plan: BP under good control with current medication (4) Ribs, multiple fractures Status: Acute Plan: Pain under better control. Cont incentive spirometry. OOB (5) Generalized anxiety disorder Status: Chronic Plan: Continue Lorazepam. Dose has been decreased due to decreased renal function. Cont Buspirone and Escitalopram (6) Anemia Status: Acute Plan: Patient status post transfusions. Anemia multifactorial including blood loss from rib fracture and hemothorax and acute kidney injury. Patient receiving Iron, thiamine and B12 supplements. Will receive Procrit per Nephrology Problem Qualifiers (1) Hypertension: Qualified Code: I10 - Essential hypertension (2) Ribs, multiple fractures: Qualified Code: S22.42XG - Closed fracture of multiple ribs of left side with delayed healing, subsequent encounter (3) Anemia: Qualified Code: D50.8 - Other iron deficiency anemia Kashmir Zamudio MD January 20, 2017 10:48
--- NOTE | 2017-01-20 15:13 | HHI.NPPN ---
Subjective Renal Failure: Acute History of Present Illness 56 year old with Empyema L lung ARF on Hemodialysis Additional Remarks s/p CT L side Review of Systems Musculoskeletal MS: Pain/Stiffness Objective Data Data 01/19/17 01/20/17 19:00 07:00 Intake Total 600 ml Output Total 2525 ml 5 ml Balance -2525 ml 595 ml Intake Oral 600 ml Output Urine Total 1525 ml Chest Tube Drainage Total 5 ml Hemodialysis 1000 ml # Voids 1 2 Vital Signs Date Time Temp Pulse Resp B/P Pulse Ox O2 Delivery O2 Flow Rate FiO2 01/20/17 12:00 98.4 65 20 117/61 95 01/20/17 08:40 97 Nasal Cannula 2.00 21 01/20/17 08:00 94 21 01/20/17 08:00 98.5 82 20 144/80 94 01/20/17 04:00 Nasal Cannula 2.00 01/20/17 04:00 98.3 78 20 122/61 97 01/20/17 00:00 98.0 63 20 122/61 94 01/20/17 00:00 Nasal Cannula 2.00 01/19/17 20:53 92 Nasal Cannula 2.00 01/19/17 20:30 98.4 76 20 129/70 94 01/19/17 19:30 Nasal Cannula 3.00 01/19/17 15:45 98.1 83 12 135/71 94 -: 01/19/17 0611 01/19/17 0611 Physical Exam General Appearance: Well Developed, Well Nourished Neck Neck Exam: Neck Supple Pulmonary Resp Exam: Decreased Bases Cardiology CV Exam: Regular, Normal Sinus Rhythm Gastrointestinal/Abdomen GI Exam: Soft, Non-Tender, Bowel Sounds Present Integumentary Skin Exam: Clear Extremeties Extremities Exam: No Edema Neurologic Neuro Exam: Alert Assessment/Plan Problem List: (1) Acute kidney injury Plan: He required hemodialysis and will maintain him on Sunday, Sunday and Sunday continue to observe for further recovery HD yesterday passing good amount of urine ARF resolving may come off dialysis soon L CT in place follow cultures no growth so far (2) Ribs, multiple fractures Plan: Patient is getting a chest tube (3) Empyema Plan: Recently treated the plan is to place a chest tube (4) Hypertension Plan: Continue monitor while in the hospital Problem Qualifiers (1) Ribs, multiple fractures: Qualified Code: S22.42XG - Closed fracture of multiple ribs of left side with delayed healing, subsequent encounter (2) Hypertension: Qualified Code: I10 - Essential hypertension Haider James MD January 20, 2017 15:13
[2017-01-21] VITALS: BP 135/68; PULSE 70; RESP 20; TEMP 97.6; O2SAT 93
[2017-01-21] MEDS: HYDROmorphone HCL PF 2 MG/ML VIAL IV PUSH PRN ×4 (03:25→21:09)
[2017-01-21 04:00] VITALS: BP 127/65; PULSE 70; RESP 20; TEMP 98.1; O2SAT 94
[2017-01-21] MEDS: busPIRone HCL 5 MG TAB PO SCH ×3 (06:13→21:08)
[2017-01-21 07:19] LABS: AUTOMATED NEUTROPHIL # 5.1 TH/MM3 (1.8-7.7); BASOPHIL # 0.1 TH/MM3 (0-0.2); BASOPHIL % 0.7 % (0.0-2.0); EOSINOPHIL # 0.8 TH/MM3 (0-0.4); EOSINOPHIL % 8.7 % (0.0-4.0); HEMATOCRIT 27.1 % (39.0-51.0); HEMO FLAGS DIFF FINAL; LYMPH % 17.2 % (9.0-44.0); LYMPHOCYTE # 1.5 TH/MM3 (1.0-4.8); MEAN CELL VOLUME 87.5 FL (80.0-100.0); MEAN CORPUSCULAR HEMOGLOBIN 29.1 PG (27.0-34.0); MEAN CORPUSCULAR HGB CONC 33.3 % (32.0-36.0); MONO % 13.9 % (0.0-8.0); NEUT % 59.5 % (16.0-70.0); PLATELET COUNT 306 TH/MM3 (150-450); RED CELL DISTRIBUTION WIDTH 16.6 % (11.6-17.2); WHITE BLOOD COUNT 8.7 TH/MM3 (4.0-11.0)
[2017-01-21 07:36] LABS: BICARBONATE 33.7 MEQ/L (21.0-32.0); POTASSIUM 3.4 MEQ/L (3.5-5.1)
[2017-01-21 08:00] VITALS: BP 118/74; PULSE 71; RESP 20; TEMP 98.4; O2SAT 92
[2017-01-21] MEDS: THIAMINE HCL 100 MG TAB PO SCH (08:52)
[2017-01-21] MEDS: DOCUSATE SODIUM 100 MG CAP PO SCH ×2 (08:52→21:08)
[2017-01-21] MEDS: FOLIC ACID 1 MG TAB PO SCH (08:52)
[2017-01-21] MEDS: VITAMIN B CMPLX/VITC/FOLIC AC CAP PO SCH (08:52)
[2017-01-21] MEDS: FERROUS SULFATE 325 MG (65 MG ELEMENTAL IRON) TAB PO SCH ×2 (08:52→21:11)
[2017-01-21] MEDS: METOPROLOL TARTRATE 50 MG TAB PO SCH ×2 (08:52→21:08)
[2017-01-21] MEDS: ESCITALOPRAM OXALATE 10 MG TAB PO SCH (08:53)
[2017-01-21] MEDS: LORazepam 1 MG TAB PO SCH ×2 (08:53→21:08)
[2017-01-21] MEDS: FUROSEMIDE 40 MG TAB PO SCH ×2 (08:53→12:04)
[2017-01-21] MEDS: SODIUM CHLORIDE 0.9% FLUSH 10 ML FLUSH IV FLUSH SCH ×2 (08:56→21:08)
--- NOTE | 2017-01-21 09:47 | HHI.PR ---
Subjective Remarks No sob on RA. Pain under adequate control. PO intake good. Getting up to BR Current Medications Medications (Trade) Dose Ordered Sig/Jayson Route Start Time Stop Time Status Last Admin (NS Flush) 2 ml UNSCH PRN IV FLUSH 01/16/17 21:15 01/20/17 14:10 (NS Flush) 2 ml BID IV FLUSH 01/17/17 09:00 01/21/17 08:56 (Tylenol) 650 mg Q4H PRN PO 01/16/17 21:15 (Narcan Inj) 0.4 mg UNSCH PRN IV 01/16/17 21:15 (Colace) 100 mg BID PO 01/17/17 09:00 01/21/17 08:52 (Catapres) 0.1 mg Q8HR PRN PO 01/16/17 21:15 (Ativan) 1 mg Q12HR PO 01/16/17 21:15 01/21/17 08:53 (Buspar) 5 mg Q8HR PO 01/16/17 22:00 01/21/17 06:13 (Lexapro) 10 mg DAILY PO 01/17/17 09:00 01/21/17 08:53 (Ferrous Sulfate) 325 mg BID PO 01/17/17 09:00 01/21/17 08:52 (Folate) 1 mg DAILY PO 01/17/17 09:00 01/21/17 08:52 (Nephrocaps) 1 cap DAILY PO 01/17/17 09:00 01/21/17 08:52 (Vitamin B1) 100 mg DAILY PO 01/17/17 09:00 01/21/17 08:52 Ondansetron HCl 4 mg 4 mg Q8HR PRN IVP 01/16/17 22:00 (NS 1000 ml Inj) 1,000 ml @ 0 mls/hr Q0M PRN IV 01/17/17 08:26 Heparin Sodium (Porcine) 8000 units 8,000 units UNSCH PRN IVF 01/17/17 08:30 Sodium Chloride 1,000 ml @ 200 mls/hr Q5H PRN IV 01/17/17 08:26 (NS 1000 ml Inj) 1,000 ml @ 0 mls/hr Q0M PRN IV 01/17/17 08:26 (Mannitol Inj) 12.5 gm UNSCH PRN IV 01/17/17 08:30 (Albumin 25% Inj) 25 gm UNSCH PRN IV 01/17/17 08:30 (NS Flush) 5 ml UNSCH PRN IV FLUSH 01/17/17 08:30 (Heparin Inj) UNSCH PRN .XX 01/17/17 08:30 01/19/17 16:00 (Gentamicin (Dialysis) Inj) 20 mg UNSCH PRN IV 01/17/17 08:30 01/19/17 16:00 (Zofran Inj) 4 mg UNSCH PRN IV 01/17/17 08:30 (Tylenol) 650 mg UNSCH PRN PO 01/17/17 08:30 (Benadryl) 25 mg UNSCH PRN PO 01/17/17 08:30 (Nitrostat Sl) 0.4 mg UNSCH PRN SL 01/17/17 08:30 (Catapres) 0.1 mg UNSCH PRN PO 01/17/17 08:30 (Epogen Inj) 4,000 units UNSCH PRN IV 01/17/17 08:30 01/19/17 15:00 (Gelfoam 12 Mm/7 Mm Top) 1 foam UNSCH PRN TOP 01/17/17 08:30 (Lopressor) 50 mg Q12HR PO 01/17/17 21:00 01/21/17 08:52 (Roxicodone) 30 mg Q6H PO 01/17/17 12:30 01/21/17 06:13 (Lasix) 40 mg DAILY PO 01/20/17 09:00 01/20/17 09:25 (Atarax) 25 mg Q8H PRN PO 01/19/17 15:00 01/19/17 18:24 (Dilaudid Pf Inj) 0.5 mg Q3HR PRN IV PUSH 01/20/17 11:00 01/21/17 09:06 Objective Vital Signs Date Time Temp Pulse Resp B/P Pulse Ox O2 Delivery O2 Flow Rate FiO2 01/21/17 08:51 20 01/21/17 08:00 98.4 71 20 118/74 92 01/21/17 04:00 98.1 70 20 127/65 94 01/21/17 04:00 Room Air 01/21/17 00:00 Room Air 01/21/17 00:00 97.6 70 20 135/68 93 01/20/17 21:08 92 21 01/20/17 20:00 Room Air 01/20/17 20:00 98.8 73 20 112/56 91 01/20/17 16:00 97.5 69 20 132/65 93 01/20/17 12:00 98.4 65 20 117/61 95 I/O 01/20/17 01/20/17 01/20/17 01/21/17 01/21/17 01/21/17 07:00 15:00 23:00 07:00 15:00 23:00 Intake Total 360 ml 720 ml 280 ml 280 ml Output Total 5 ml 300 ml 800 ml Balance 355 ml 420 ml 280 ml -520 ml Intake Oral 360 ml 720 ml 280 ml 280 ml Output Urine Total 300 ml 800 ml Chest Tube Drainage Total 5 ml # Voids 1 2 2 # Bowel Movements 0 0 CV: RRR Lungs: CTA Abd: soft, NT, ND, +BS Result Diagram: 01/21/1760201/21/17602 Assessment and Plan Problem List: (1) Acute kidney injury Status: Acute Plan: Cont HD per nephrology. (2) Empyema Status: Acute Plan: S/P Decortication. S/P chest tube placement. DC CT on Sun or Sun. (3) Hypertension Status: Chronic Plan: BP under good control with current medication (4) Ribs, multiple fractures Status: Acute Plan: Pain under better control. Cont incentive spirometry. OOB (5) Generalized anxiety disorder Status: Chronic Plan: Continue Lorazepam. Dose has been decreased due to decreased renal function. Cont Buspirone and Escitalopram (6) Anemia Status: Acute Plan: Patient status post transfusions. Anemia multifactorial including blood loss from rib fracture and hemothorax and acute kidney injury. Patient receiving Iron, thiamine and B12 supplements. Will receive Procrit per Nephrology (7) Hypokalemia Status: Acute Plan: Supplement Potassium today. Follow K+ level Problem Qualifiers (1) Hypertension: Qualified Code: I10 - Essential hypertension (2) Ribs, multiple fractures: Qualified Code: S22.42XG - Closed fracture of multiple ribs of left side with delayed healing, subsequent encounter (3) Anemia: Qualified Code: D50.8 - Other iron deficiency anemia Kashmir Zamudio MD January 21, 2017 09:47
[2017-01-21 12:00] VITALS: BP 123/67; PULSE 64; RESP 20; TEMP 97.7; O2SAT 95; O2SAT 96
[2017-01-21] MEDS: POTASSIUM CHLORIDE 20 MEQ CONTROLLED RELEASE TAB PO SCH ×2 (12:05→21:08)
[2017-01-21] MEDS ORDERED: POTASSIUM CHLORIDE 20 MEQ CONTROLLED RELEASE TAB PO ONE (14:30)
--- NOTE | 2017-01-21 14:34 | HHI.NPPN ---
Subjective Renal Failure: Acute History of Present Illness 56 year old with Empyema L lung ARF on Hemodialysis Additional Remarks s/p CT L side, c/o tiredness Review of Systems Musculoskeletal MS: Pain/Stiffness Objective Data Data 01/20/17 01/21/17 19:00 07:00 Intake Total 720 ml 560 ml Output Total 300 ml 800 ml Balance 420 ml -240 ml Intake Oral 720 ml 560 ml Output Urine Total 300 ml 800 ml # Voids 2 2 # Bowel Movements 0 Vital Signs Date Time Temp Pulse Resp B/P Pulse Ox O2 Delivery O2 Flow Rate FiO2 01/21/17 12:00 97.7 64 20 123/67 95 01/21/17 12:00 96 01/21/17 08:51 20 01/21/17 08:15 92 Room Air 01/21/17 08:00 98.4 71 20 118/74 92 01/21/17 04:00 98.1 70 20 127/65 94 01/21/17 04:00 Room Air 01/21/17 00:00 Room Air 01/21/17 00:00 97.6 70 20 135/68 93 01/20/17 21:08 92 21 01/20/17 20:00 Room Air 01/20/17 20:00 98.8 73 20 112/56 91 01/20/17 16:00 97.5 69 20 132/65 93 -: 01/21/17 0603 01/21/17 0603 Physical Exam General Appearance: Well Developed, Well Nourished Neck Neck Exam: Neck Supple Pulmonary Resp Exam: Decreased Bases Cardiology CV Exam: Regular, Normal Sinus Rhythm Gastrointestinal/Abdomen GI Exam: Soft, Non-Tender, Bowel Sounds Present Integumentary Skin Exam: Clear Extremeties Extremities Exam: No Edema Neurologic Neuro Exam: Alert Assessment/Plan Problem List: (1) Acute kidney injury Plan: He required hemodialysis discussed his Creatinine is better UOP good, if Cr same or lower then hold dialysis replace K he can have more proteins and wants to eat Sushi L CT in place follow cultures no growth (2) Ribs, multiple fractures Plan: Patient is getting a chest tube (3) Empyema Plan: Recently treated the plan is to place a chest tube (4) Hypertension Plan: Continue monitor while in the hospital Problem Qualifiers (1) Ribs, multiple fractures: Qualified Code: S22.42XG - Closed fracture of multiple ribs of left side with delayed healing, subsequent encounter (2) Hypertension: Qualified Code: I10 - Essential hypertension Haider James MD January 21, 2017 14:34
[2017-01-21 16:00] VITALS: BP 111/57; PULSE 62; RESP 20; TEMP 98.3; O2SAT 92
[2017-01-21 20:10] VITALS: BP 135/75; PULSE 68; RESP 18; TEMP 98; O2SAT 93
[2017-01-22] VITALS (8 sets, daily range): BP systolic 108–134; BP diastolic 55–83; PULSE 61–68; RESP 18–20; TEMP 98–98.3; O2SAT 92–96
[2017-01-22] MEDS: HYDROmorphone HCL PF 2 MG/ML VIAL IV PUSH PRN (04:59)
[2017-01-22] MEDS: busPIRone HCL 5 MG TAB PO SCH ×3 (06:16→21:12)
[2017-01-22] MEDS: DOCUSATE SODIUM 100 MG CAP PO SCH ×2 (09:00→20:34)
[2017-01-22] MEDS: POTASSIUM CHLORIDE 20 MEQ CONTROLLED RELEASE TAB PO SCH ×2 (09:00→12:46)
[2017-01-22] MEDS: EPOETIN ALFA 4,000 UNITS/ML VIAL IV PRN (09:51)
--- NOTE | 2017-01-22 09:52 | HHI.PR ---
Subjective Remarks Patient seen in HD. States pain under adequate control at present. Denies SOB. PO intake good. BP under good control Current Medications Medications (Trade) Dose Ordered Sig/Jayson Route Start Time Stop Time Status Last Admin (NS Flush) 2 ml UNSCH PRN IV FLUSH 01/16/17 21:15 01/20/17 14:10 (NS Flush) 2 ml BID IV FLUSH 01/17/17 09:00 01/21/17 21:08 (Tylenol) 650 mg Q4H PRN PO 01/16/17 21:15 (Narcan Inj) 0.4 mg UNSCH PRN IV 01/16/17 21:15 (Colace) 100 mg BID PO 01/17/17 09:00 01/21/17 21:08 (Catapres) 0.1 mg Q8HR PRN PO 01/16/17 21:15 (Ativan) 1 mg Q12HR PO 01/16/17 21:15 01/21/17 21:08 (Buspar) 5 mg Q8HR PO 01/16/17 22:00 01/22/17 06:16 (Lexapro) 10 mg DAILY PO 01/17/17 09:00 01/21/17 08:53 (Ferrous Sulfate) 325 mg BID PO 01/17/17 09:00 01/21/17 21:11 (Folate) 1 mg DAILY PO 01/17/17 09:00 01/21/17 08:52 (Nephrocaps) 1 cap DAILY PO 01/17/17 09:00 01/21/17 08:52 (Vitamin B1) 100 mg DAILY PO 01/17/17 09:00 01/21/17 08:52 Ondansetron HCl 4 mg 4 mg Q8HR PRN IVP 01/16/17 22:00 (NS 1000 ml Inj) 1,000 ml @ 0 mls/hr Q0M PRN IV 01/17/17 08:26 Heparin Sodium (Porcine) 8000 units 8,000 units UNSCH PRN IVF 01/17/17 08:30 Sodium Chloride 1,000 ml @ 200 mls/hr Q5H PRN IV 01/17/17 08:26 (NS 1000 ml Inj) 1,000 ml @ 0 mls/hr Q0M PRN IV 01/17/17 08:26 (Mannitol Inj) 12.5 gm UNSCH PRN IV 01/17/17 08:30 (Albumin 25% Inj) 25 gm UNSCH PRN IV 01/17/17 08:30 (NS Flush) 5 ml UNSCH PRN IV FLUSH 01/17/17 08:30 (Heparin Inj) UNSCH PRN .XX 01/17/17 08:30 01/19/17 16:00 (Gentamicin (Dialysis) Inj) 20 mg UNSCH PRN IV 01/17/17 08:30 01/19/17 16:00 (Zofran Inj) 4 mg UNSCH PRN IV 01/17/17 08:30 (Tylenol) 650 mg UNSCH PRN PO 01/17/17 08:30 (Benadryl) 25 mg UNSCH PRN PO 01/17/17 08:30 (Nitrostat Sl) 0.4 mg UNSCH PRN SL 01/17/17 08:30 (Catapres) 0.1 mg UNSCH PRN PO 01/17/17 08:30 (Epogen Inj) 4,000 units UNSCH PRN IV 01/17/17 08:30 01/19/17 15:00 (Gelfoam 12 Mm/7 Mm Top) 1 foam UNSCH PRN TOP 01/17/17 08:30 (Lopressor) 50 mg Q12HR PO 01/17/17 21:00 01/21/17 21:08 (Roxicodone) 30 mg Q6H PO 01/17/17 12:30 01/22/17 06:16 (Lasix) 40 mg DAILY PO 01/20/17 09:00 01/21/17 12:04 (Atarax) 25 mg Q8H PRN PO 01/19/17 15:00 01/19/17 18:24 (Dilaudid Pf Inj) 0.5 mg Q3HR PRN IV PUSH 01/20/17 11:00 01/22/17 04:59 (KCl) 20 meq Q12HR PO 01/21/17 10:00 01/22/17 09:59 01/21/17 21:08 (KCl) 20 meq DAILY PO 01/22/17 09:00 Objective Vital Signs Date Time Temp Pulse Resp B/P Pulse Ox O2 Delivery O2 Flow Rate FiO2 01/22/17 08:22 92 21 01/22/17 08:00 Room Air 01/22/17 08:00 98.0 61 20 133/83 96 01/22/17 03:33 98.3 64 18 133/61 94 01/22/17 00:00 98.2 64 20 134/70 92 01/22/17 00:00 Room Air 01/21/17 20:10 98.0 68 18 135/75 93 01/21/17 20:00 Room Air 01/21/17 16:00 98.3 62 20 111/57 92 01/21/17 12:00 97.7 64 20 123/67 95 01/21/17 12:00 96 I/O 01/21/17 01/21/17 01/21/17 01/22/17 01/22/17 01/22/17 07:00 15:00 23:00 07:00 15:00 23:00 Intake Total 280 ml 720 ml 500 ml 260 ml Output Total 800 ml 550 ml 900 ml 420 ml Balance -520 ml 720 ml -50 ml -640 ml -420 ml Intake Oral 280 ml 720 ml 500 ml 260 ml Output Urine Total 800 ml 550 ml 900 ml 420 ml # Bowel Movements 0 CV: RRR Lungs: CTA Abd: soft, NT, ND Result Diagram: 01/21/1760201/21/17602 Assessment and Plan Problem List: (1) Acute kidney injury Status: Acute Plan: Reviewed nephrology note. UOP good. HD per nephrology (2) Empyema Status: Acute Plan: S/P Decortication. S/P chest tube placement. DC CT tomorrow (3) Hypertension Status: Chronic Plan: BP under good control with current medication (4) Ribs, multiple fractures Status: Acute Plan: Pain under better control. Will DC Dilaudid IV and begin to wean Oxycodone (5) Generalized anxiety disorder Status: Chronic Plan: Continue Lorazepam. Dose has been decreased due to decreased renal function. Cont Buspirone and Escitalopram (6) Anemia Status: Acute Plan: Patient status post transfusions. Anemia multifactorial including blood loss from rib fracture and hemothorax and acute kidney injury. Patient receiving Iron, thiamine and B12 supplements. Will receive Procrit per Nephrology (7) Hypokalemia Status: Acute Plan: Repeat K+ level pending Assessment and Plan I had a conversation with the patient's ex-, Juli, about the patient's condition. Patient gave me permission to speak with her. She tells me the patient had a history of prescription drug abuse in the past and had seemingly stopped but they are not certain. He has the alcohol addiction issue as well. She states jessy family is concerned about him receiving the narcotic analgesics. I explained he does have legitimate pain from the rib fractures but I will wean the medication now that I have this information. The family wants him to go directly to substance abuse rehab at discharge. I explained he will need medical follow-up and may continue to reuire hemodialysis. The facility he was to enter in [place] may be able to coordinate medical care. I asked her to check on this. He will need outpatient hemodialysis, follow-up chest Xrays, lab work and physician appointments. She will let me know what she finds out Problem Qualifiers (1) Hypertension: Qualified Code: I10 - Essential hypertension (2) Ribs, multiple fractures: Qualified Code: S22.42XG - Closed fracture of multiple ribs of left side with delayed healing, subsequent encounter (3) Anemia: Qualified Code: D50.8 - Other iron deficiency anemia Kashmir Zamudio MD January 22, 2017 09:52
[2017-01-22 10:12] LABS: BICARBONATE 34.8 MEQ/L (21.0-32.0); POTASSIUM 3.6 MEQ/L (3.5-5.1)
--- NOTE | 2017-01-22 11:02 | HHI.NPPN ---
Subjective Renal Failure: Acute History of Present Illness 56 year old with Empyema L lung ARF on Hemodialysis Additional Remarks s/p CT L side, c/o tiredness Review of Systems Musculoskeletal MS: Pain/Stiffness Objective Data Data 01/21/17 01/22/17 19:00 07:00 Intake Total 720 ml 760 ml Output Total 1450 ml Balance 720 ml -690 ml Intake Oral 720 ml 760 ml Output Urine Total 1450 ml Vital Signs Date Time Temp Pulse Resp B/P Pulse Ox O2 Delivery O2 Flow Rate FiO2 01/22/17 08:22 92 21 01/22/17 08:00 Room Air 01/22/17 08:00 98.0 61 20 133/83 96 01/22/17 03:33 98.3 64 18 133/61 94 01/22/17 00:00 98.2 64 20 134/70 92 01/22/17 00:00 Room Air 01/21/17 20:10 98.0 68 18 135/75 93 01/21/17 20:00 Room Air 01/21/17 16:00 98.3 62 20 111/57 92 01/21/17 12:00 97.7 64 20 123/67 95 01/21/17 12:00 96 -: 01/21/17 0603 01/22/17 0905 Physical Exam General Appearance: Well Developed, Well Nourished Neck Neck Exam: Neck Supple Pulmonary Resp Exam: Decreased Bases Cardiology CV Exam: Regular, Normal Sinus Rhythm Gastrointestinal/Abdomen GI Exam: Soft, Non-Tender, Bowel Sounds Present Integumentary Skin Exam: Clear Extremeties Extremities Exam: No Edema Neurologic Neuro Exam: Alert Assessment/Plan Problem List: (1) Acute kidney injury Plan: He required hemodialysis discussed his Creatinine is better UOP good, seen at dialysis as c/o tiredness 2 L UF Cr declined may be off dialysis soon L CT in place follow cultures no growth (2) Ribs, multiple fractures Plan: Patient is getting a chest tube (3) Empyema Plan: Recently treated the plan is to place a chest tube (4) Hypertension Plan: Continue monitor while in the hospital Problem Qualifiers (1) Ribs, multiple fractures: Qualified Code: S22.42XG - Closed fracture of multiple ribs of left side with delayed healing, subsequent encounter (2) Hypertension: Qualified Code: I10 - Essential hypertension Haider James MD January 22, 2017 11:02
[2017-01-22] MEDS: HEPARIN SODIUM - IV 10,000 UNITS/10 ML VIAL PRN (11:43)
[2017-01-22] MEDS: GENTAMICIN SULFATE (DIALYSIS USE ONLY) 20 MG/2 ML VIAL IV PRN (11:43)
[2017-01-22] MEDS: ESCITALOPRAM OXALATE 10 MG TAB PO SCH (12:46)
[2017-01-22] MEDS: LORazepam 1 MG TAB PO SCH ×2 (12:46→20:31)
[2017-01-22] MEDS: FUROSEMIDE 40 MG TAB PO SCH (12:46)
[2017-01-22] MEDS: THIAMINE HCL 100 MG TAB PO SCH (12:46)
[2017-01-22] MEDS: FOLIC ACID 1 MG TAB PO SCH (12:46)
[2017-01-22] MEDS: VITAMIN B CMPLX/VITC/FOLIC AC CAP PO SCH (12:46)
[2017-01-22] MEDS: SODIUM CHLORIDE 0.9% FLUSH 10 ML FLUSH IV FLUSH SCH ×2 (12:47→20:31)
[2017-01-22] MEDS: FERROUS SULFATE 325 MG (65 MG ELEMENTAL IRON) TAB PO SCH ×2 (12:47→20:31)
[2017-01-22] MEDS: METOPROLOL TARTRATE 50 MG TAB PO SCH ×2 (12:47→20:31)
[2017-01-23] VITALS: BP 104/51; PULSE 58; RESP 16; TEMP 98.1; O2SAT 94
[2017-01-23 04:00] VITALS: BP 130/64; PULSE 62; RESP 18; TEMP 98.2; O2SAT 95
[2017-01-23] MEDS: busPIRone HCL 5 MG TAB PO SCH ×3 (06:06→21:09)
[2017-01-23 07:58] LABS: POTASSIUM 4.1 MEQ/L (3.5-5.1)
[2017-01-23 08:00] VITALS: BP 114/55; PULSE 61; RESP 18; TEMP 97.8; O2SAT 96
[2017-01-23] MEDS: VITAMIN B CMPLX/VITC/FOLIC AC CAP PO SCH (08:42)
[2017-01-23] MEDS: DOCUSATE SODIUM 100 MG CAP PO SCH ×3 (08:42→21:10)
[2017-01-23] MEDS: FERROUS SULFATE 325 MG (65 MG ELEMENTAL IRON) TAB PO SCH ×2 (08:42→21:09)
[2017-01-23] MEDS: METOPROLOL TARTRATE 50 MG TAB PO SCH ×2 (08:42→21:10)
[2017-01-23] MEDS: POTASSIUM CHLORIDE 20 MEQ CONTROLLED RELEASE TAB PO SCH (08:42)
[2017-01-23] MEDS: FUROSEMIDE 40 MG TAB PO SCH (08:42)
[2017-01-23] MEDS: LORazepam 1 MG TAB PO SCH ×2 (08:42→21:10)
[2017-01-23] MEDS: SODIUM CHLORIDE 0.9% FLUSH 10 ML FLUSH IV FLUSH SCH ×2 (08:42→21:09)
[2017-01-23] MEDS: ESCITALOPRAM OXALATE 10 MG TAB PO SCH (08:42)
[2017-01-23] MEDS: THIAMINE HCL 100 MG TAB PO SCH (08:42)
[2017-01-23] MEDS: FOLIC ACID 1 MG TAB PO SCH (08:42)
--- NOTE | 2017-01-23 08:46 | HHI.PR ---
Subjective Remarks Pain controlled at present. Last Oxycodone at 6 am. Patient requested change of Oxycodone to prn. Slept all night without Oxycodone. No SOB. Min output CT. BP under control with current medication. No chest pain or palpitations UOP good. Bowels moving. Current Medications Medications (Trade) Dose Ordered Sig/Jayson Route Start Time Stop Time Status Last Admin (NS Flush) 2 ml UNSCH PRN IV FLUSH 01/16/17 21:15 01/20/17 14:10 (NS Flush) 2 ml BID IV FLUSH 01/17/17 09:00 01/22/17 20:31 (Tylenol) 650 mg Q4H PRN PO 01/16/17 21:15 (Narcan Inj) 0.4 mg UNSCH PRN IV 01/16/17 21:15 (Colace) 100 mg BID PO 01/17/17 09:00 01/21/17 21:08 (Ativan) 1 mg Q12HR PO 01/16/17 21:15 01/22/17 20:31 (Buspar) 5 mg Q8HR PO 01/16/17 22:00 01/23/17 06:06 (Lexapro) 10 mg DAILY PO 01/17/17 09:00 01/22/17 12:46 (Ferrous Sulfate) 325 mg BID PO 01/17/17 09:00 01/22/17 20:31 (Folate) 1 mg DAILY PO 01/17/17 09:00 01/22/17 12:46 (Nephrocaps) 1 cap DAILY PO 01/17/17 09:00 01/22/17 12:46 (Vitamin B1) 100 mg DAILY PO 01/17/17 09:00 01/22/17 12:46 Ondansetron HCl 4 mg 4 mg Q8HR PRN IVP 01/16/17 22:00 (NS 1000 ml Inj) 1,000 ml @ 0 mls/hr Q0M PRN IV 01/17/17 08:26 Heparin Sodium (Porcine) 8000 units 8,000 units UNSCH PRN IVF 01/17/17 08:30 Sodium Chloride 1,000 ml @ 200 mls/hr Q5H PRN IV 01/17/17 08:26 (NS 1000 ml Inj) 1,000 ml @ 0 mls/hr Q0M PRN IV 01/17/17 08:26 (Mannitol Inj) 12.5 gm UNSCH PRN IV 01/17/17 08:30 (Albumin 25% Inj) 25 gm UNSCH PRN IV 01/17/17 08:30 (NS Flush) 5 ml UNSCH PRN IV FLUSH 01/17/17 08:30 (Heparin Inj) UNSCH PRN .XX 01/17/17 08:30 01/22/17 11:43 (Gentamicin (Dialysis) Inj) 20 mg UNSCH PRN IV 01/17/17 08:30 01/22/17 11:43 (Zofran Inj) 4 mg UNSCH PRN IV 01/17/17 08:30 (Tylenol) 650 mg UNSCH PRN PO 01/17/17 08:30 (Benadryl) 25 mg UNSCH PRN PO 01/17/17 08:30 (Nitrostat Sl) 0.4 mg UNSCH PRN SL 01/17/17 08:30 (Catapres) 0.1 mg UNSCH PRN PO 01/17/17 08:30 (Epogen Inj) 4,000 units UNSCH PRN IV 01/17/17 08:30 01/22/17 09:51 (Gelfoam 12 Mm/7 Mm Top) 1 foam UNSCH PRN TOP 01/17/17 08:30 (Lopressor) 50 mg Q12HR PO 01/17/17 21:00 01/22/17 20:31 (Lasix) 40 mg DAILY PO 01/20/17 09:00 01/22/17 12:46 (Atarax) 25 mg Q8H PRN PO 01/19/17 15:00 01/19/17 18:24 (KCl) 20 meq DAILY PO 01/22/17 09:00 01/22/17 12:46 (Roxicodone) 20 mg Q6H PRN PO 01/22/17 17:57 01/23/17 06:06 Objective Vital Signs Date Time Temp Pulse Resp B/P Pulse Ox O2 Delivery O2 Flow Rate FiO2 01/23/17 08:00 97.8 61 18 114/55 96 01/23/17 04:00 Room Air 01/23/17 04:00 98.2 62 18 130/64 95 01/23/17 00:00 Room Air 01/23/17 00:00 98.1 58 16 104/51 94 01/22/17 20:44 95 21 01/22/17 20:00 98.0 68 18 126/66 93 01/22/17 20:00 Room Air 01/22/17 16:00 Room Air 01/22/17 16:00 98.1 62 20 108/55 95 01/22/17 12:25 98.3 62 20 120/66 95 01/22/17 12:00 Room Air I/O 01/22/17 01/22/17 01/22/17 01/23/17 01/23/17 01/23/17 07:00 15:00 23:00 07:00 15:00 23:00 Intake Total 260 ml 2 ml 240 ml 0 ml Output Total 900 ml 2420 ml 375 ml Balance -640 ml -2418 ml -135 ml 0 ml Intake Oral 260 ml 240 ml 0 ml IV Total 2 ml Output Urine Total 900 ml 420 ml 375 ml Chest Tube Drainage Total 0 ml Hemodialysis 2000 ml # Voids 1 0 # Bowel Movements 0 0 CV: RRR Lungs: CTA Abd: soft, NT, ND, +BS Ext: No edema Result Diagram: 01/21/17 0603 01/23/17 0548 Assessment and Plan Problem List: (1) Acute kidney injury Status: Acute Plan: Reviewed nephrology note. Nephrology optimistic about patient coming off HD. Case management to discuss with Dr James whether patient to require outpatient HD. If so needs to be arranged (2) Empyema Status: Acute Plan: S/P Decortication. S/P chest tube placement. Anticipate DC CT today (3) Hypertension Status: Chronic Plan: BP under good control with current medication (4) Ribs, multiple fractures Status: Acute Plan: Pain under better control. Weaning Oxycodone (5) Generalized anxiety disorder Status: Chronic Plan: Continue Lorazepam. Dose has been decreased due to decreased renal function. Cont Buspirone and Escitalopram (6) Anemia Status: Acute Plan: Patient status post transfusions. Anemia multifactorial including blood loss from rib fracture and hemothorax and acute kidney injury. Patient receiving Iron, thiamine and B12 supplements. Will receive Procrit per Nephrology (7) Hypokalemia Status: Resolved Plan: Corrected. Cont KCL and follow K+ level Assessment and Plan Patient states he wants t wean off narcotics. He does not want to consider going to inpatient substance abuse rehab at this time. He wants to go home. I discussed with him that he will be provided with pain medication that must be taken as directed. No additional medication would be given. I anticipate he should be able to wean off narcotic analgesics in next 1-2 weeks. Problem Qualifiers (1) Hypertension: Qualified Code: I10 - Essential hypertension (2) Ribs, multiple fractures: Qualified Code: S22.42XG - Closed fracture of multiple ribs of left side with delayed healing, subsequent encounter (3) Anemia: Qualified Code: D50.8 - Other iron deficiency anemia Kashmir Zamudio MD January 23, 2017 08:45
--- NOTE | 2017-01-23 09:03 | RSPPFT ---
DATE OF PROCEDURE: 01/18/17 COMMENTS: VOLUMES DYNAMIC: FVC and FEV1 moderately reduced. FLOWS: FEV1% normal; FEF 25-75 mildly reduced. IMPRESSION: There is a significant reduction in forced vital capacity and FEV1 but only small airways obstruction. This may be a combined obstructive and restrictive defect but full lung volumes would be necessary for clarification.
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
[2017-01-23 11:33] VITALS: BP 109/58; PULSE 62; RESP 18; TEMP 98; O2SAT 95
--- NOTE | 2017-01-23 12:45 | RADRPT ---
EXAM DATE/TIME: 01/23/2017 12:26 [facility] COMPARISON: CHEST SINGLE AP, January 19, 2017, 12:25. CHEST EXPIRATION ONLY, January 18, 2017, 6:17. CT GUIDED CHEST TU BE PLACEMENT LEFT, January 17, 2017, 18:37. CT THORAX W/O CONTRAST, January 17, 2017, 0:32. INDICATIONS : Empyema, possible chest tube removal RADIATION DOSE: 5.23 CTDIvol (mGy) MEDICAL HISTORY : Hypertension. SURGICAL HISTORY : None. ENCOUNTER: Initial ACUITY: 1 week PAIN SCALE: 0/10 LOCATION: chest TECHNIQUE: Volumetric scanning of the chest was performed. Using automated exposure control and adjustment of t he mA and/or kV according to patient size, radiation dose was kept as low as reasonably achievable to obtain optimal diagnostic quality images. FINDINGS: LUNGS: There continues to be an interstitial infiltrate in the right upper lung. The interstitial infiltrate is mildly improved compared to the prior exam. The right lung base is clear and well-aerated. There is a chest tube in the left apex. The chest tube is surrounded by parenchymal consolidation and a few air bubbles. No definite pneumothorax.. There is a stable parenchymal infiltrate in the left lung ba se with pleural thickening. PLEURAE: Left-sided pleural thickening. No definite pleural effusions. MEDIASTINUM: The heart and great vessels demonstrate no acute abnormality. There is no mediastinal or hilar lymph adenopathy. AXILLAE: Within normal limits. No lymphadenopathy. MUSCULOSKELETAL: Within normal limits for patient age. MISCELLANEOUS: The visualized upper abdominal organs demonstrate no acute abnormality. CONCLUSION: 1. There continues to be a interstitial infiltrate in the right upper lung which is mildly improved c ompared to the prior study. 2. Left apical chest tube remains in place surrounded by parenchymal consolidation and a few air bubb les. No pneumothorax. 3. Stable parenchymal infiltrate and pleural thickening in the left lung base. Myron French MD on January 23, 2017 at 12:38 Board Certified Radiologist. This report was verified electronically.
--- NOTE | 2017-01-23 13:02 | HHI.NPPN ---
Subjective Renal Failure: Acute History of Present Illness 56 year old with Empyema L lung ARF on Hemodialysis Additional Remarks s/p CT L side, feels better Review of Systems Musculoskeletal MS: Pain/Stiffness Objective Data Data 01/22/17 01/23/17 19:00 07:00 Intake Total 2 ml 240 ml Output Total 2420 ml 375 ml Balance -2418 ml -135 ml Intake Oral 240 ml IV Total 2 ml Output Urine Total 420 ml 375 ml Chest Tube Drainage Total 0 ml Hemodialysis 2000 ml # Voids 1 0 # Bowel Movements 0 Vital Signs Date Time Temp Pulse Resp B/P Pulse Ox O2 Delivery O2 Flow Rate FiO2 01/23/17 11:33 98.0 62 18 109/58 95 01/23/17 08:00 97.8 61 18 114/55 96 01/23/17 04:00 Room Air 01/23/17 04:00 98.2 62 18 130/64 95 01/23/17 00:00 Room Air 01/23/17 00:00 98.1 58 16 104/51 94 01/22/17 20:44 95 21 01/22/17 20:00 98.0 68 18 126/66 93 01/22/17 20:00 Room Air 01/22/17 16:00 Room Air 01/22/17 16:00 98.1 62 20 108/55 95 -: 01/21/17 0603 01/23/17 0548 Physical Exam General Appearance: Well Developed, Well Nourished Neck Neck Exam: Neck Supple Pulmonary Resp Exam: Decreased Bases Cardiology CV Exam: Regular, Normal Sinus Rhythm Gastrointestinal/Abdomen GI Exam: Soft, Non-Tender, Bowel Sounds Present Integumentary Skin Exam: Clear Extremeties Extremities Exam: No Edema Neurologic Neuro Exam: Alert Assessment/Plan Problem List: (1) Acute kidney injury Plan: He is doing better Cr declined may be off dialysis hold it tomorrow cr 2.[address] may be taken out follow up cultures no growth (2) Ribs, multiple fractures Plan: Patient has a chest tube (3) Empyema Plan: Recently treated no growth dc CT (4) Hypertension Plan: Continue monitor while in the hospital Problem Qualifiers (1) Ribs, multiple fractures: Qualified Code: S22.42XG - Closed fracture of multiple ribs of left side with delayed healing, subsequent encounter (2) Hypertension: Qualified Code: I10 - Essential hypertension Jacob,Sajid MD January 23, 2017 13:02
[2017-01-23 16:00] VITALS: BP 115/61; PULSE 61; RESP 18; TEMP 98.4; O2SAT 94
[2017-01-23] MEDS ORDERED: ALTEPLASE RECOMBINANT 2 MG VIAL I-PLEURAL ONE (16:45)
[2017-01-23 20:00] VITALS: BP 138/72; PULSE 64; RESP 18; TEMP 98.7; O2SAT 96
[2017-01-24] VITALS: BP 115/58; PULSE 60; RESP 20; TEMP 98; O2SAT 96
[2017-01-24 04:00] VITALS: BP 109/66; PULSE 63; RESP 20; TEMP 98.2; O2SAT 96
[2017-01-24] MEDS: busPIRone HCL 5 MG TAB PO SCH ×3 (06:28→21:28)
[2017-01-24 07:31] LABS: AUTOMATED NEUTROPHIL # 6.2 TH/MM3 (1.8-7.7); BASOPHIL # 0.1 TH/MM3 (0-0.2); BASOPHIL % 1.2 % (0.0-2.0); EOSINOPHIL # 0.6 TH/MM3 (0-0.4); EOSINOPHIL % 6.2 % (0.0-4.0); HEMO FLAGS DIFF FINAL; LYMPH % 17.5 % (9.0-44.0); LYMPHOCYTE # 1.7 TH/MM3 (1.0-4.8); MEAN CELL VOLUME 88.5 FL (80.0-100.0); MEAN CORPUSCULAR HGB CONC 31.7 % (32.0-36.0); MONO % 11.9 % (0.0-8.0); NEUT % 63.2 % (16.0-70.0); PLATELET COUNT 327 TH/MM3 (150-450); RED BLOOD COUNT 3.62 MIL/MM3 (4.50-5.90); RED CELL DISTRIBUTION WIDTH 16.9 % (11.6-17.2); WHITE BLOOD COUNT 9.9 TH/MM3 (4.0-11.0)
[2017-01-24 08:00] VITALS: BP 116/62; PULSE 54; RESP 18; TEMP 98.5; O2SAT 94
[2017-01-24 08:05] LABS: BICARBONATE 32.6 MEQ/L (21.0-32.0); POTASSIUM 4.6 MEQ/L (3.5-5.1)
[2017-01-24] MEDS: METOPROLOL TARTRATE 50 MG TAB PO SCH ×2 (08:59→21:28)
[2017-01-24] MEDS: SODIUM CHLORIDE 0.9% FLUSH 10 ML FLUSH IV FLUSH SCH ×2 (09:00→21:28)
[2017-01-24] MEDS: ESCITALOPRAM OXALATE 10 MG TAB PO SCH (09:00)
[2017-01-24] MEDS: LORazepam 1 MG TAB PO SCH ×2 (09:00→21:28)
[2017-01-24] MEDS: FOLIC ACID 1 MG TAB PO SCH (09:00)
[2017-01-24] MEDS: DOCUSATE SODIUM 100 MG CAP PO SCH ×2 (09:00→21:00)
[2017-01-24] MEDS: FERROUS SULFATE 325 MG (65 MG ELEMENTAL IRON) TAB PO SCH ×2 (09:01→21:28)
[2017-01-24] MEDS: FUROSEMIDE 40 MG TAB PO SCH (09:01)
[2017-01-24] MEDS: THIAMINE HCL 100 MG TAB PO SCH (09:01)
[2017-01-24] MEDS: POTASSIUM CHLORIDE 20 MEQ CONTROLLED RELEASE TAB PO SCH (09:01)
[2017-01-24] MEDS: VITAMIN B CMPLX/VITC/FOLIC AC CAP PO SCH (09:01)
[2017-01-24 12:00] VITALS: BP 109/57; PULSE 61; RESP 18; TEMP 97.8; O2SAT 96
--- NOTE | 2017-01-24 14:07 | HHI.NPPN ---
Subjective Renal Failure: Acute History of Present Illness 56 year old with Empyema L lung ARF on Hemodialysis Additional Remarks s/p CT L side, had Activase placed drain some Review of Systems Musculoskeletal MS: Pain/Stiffness Objective Data Data 01/23/17 01/24/17 19:00 07:00 Intake Total 420 ml 2 ml Output Total 350 ml 655 ml Balance 70 ml -653 ml Intake Oral 420 ml 0 ml IV Total 0 ml 2 ml Output Urine Total 350 ml 500 ml Chest Tube Drainage Total 155 ml # Bowel Movements 0 0 Vital Signs Date Time Temp Pulse Resp B/P Pulse Ox O2 Delivery O2 Flow Rate FiO2 01/24/17 12:00 97.8 61 18 109/57 96 01/24/17 08:00 98.5 54 18 116/62 94 01/24/17 04:00 98.2 63 20 109/66 96 01/24/17 00:00 98.0 60 20 115/58 96 01/23/17 20:40 Room Air 01/23/17 20:00 98.7 64 18 138/72 96 01/23/17 16:00 Room Air 01/23/17 16:00 98.4 61 18 115/61 94 -: 01/24/17 0606 01/24/17 0606 Physical Exam General Appearance: Well Developed, Well Nourished Neck Neck Exam: Neck Supple Pulmonary Resp Exam: Decreased Bases Cardiology CV Exam: Regular, Normal Sinus Rhythm Gastrointestinal/Abdomen GI Exam: Soft, Non-Tender, Bowel Sounds Present Integumentary Skin Exam: Clear Extremeties Extremities Exam: No Edema Neurologic Neuro Exam: Alert Assessment/Plan Problem List: (1) Acute kidney injury Plan: He is doing better cr 3 not changed much continue to observe off dialysis follow BMP L CT in place s/p Activase follow up cultures no growth asking for spirometer (2) Ribs, multiple fractures Plan: Patient has a chest tube (3) Empyema Plan: Recently treated no growth dc CT (4) Hypertension Plan: Continue monitor while in the hospital Problem Qualifiers (1) Ribs, multiple fractures: Qualified Code: S22.42XG - Closed fracture of multiple ribs of left side with delayed healing, subsequent encounter (2) Hypertension: Qualified Code: I10 - Essential hypertension Haider James MD January 24, 2017 14:07
[2017-01-24 16:00] VITALS: BP 124/70; PULSE 62; RESP 18; TEMP 98.2; O2SAT 97
--- NOTE | 2017-01-24 18:24 | HHI.PR ---
Subjective Remarks Chest tube still in place. Patient had increased pain in the left chest wall after injection into the chest tube yesterday. Pain is back to baseline. He is ambulating in the room. By mouth intake is good. Blood pressure under good control. No shortness of breath on room air. Patient was to have hemodialysis today but nephrology has canceled it. Current Medications Medications (Trade) Dose Ordered Sig/Jayson Route Start Time Stop Time Status Last Admin (NS Flush) 2 ml UNSCH PRN IV FLUSH 01/16/17 21:15 01/20/17 14:10 (NS Flush) 2 ml BID IV FLUSH 01/17/17 09:00 01/24/17 09:00 (Tylenol) 650 mg Q4H PRN PO 01/16/17 21:15 (Narcan Inj) 0.4 mg UNSCH PRN IV 01/16/17 21:15 (Colace) 100 mg BID PO 01/17/17 09:00 01/23/17 21:10 (Ativan) 1 mg Q12HR PO 01/16/17 21:15 01/24/17 09:00 (Buspar) 5 mg Q8HR PO 01/16/17 22:00 01/24/17 14:57 (Lexapro) 10 mg DAILY PO 01/17/17 09:00 01/24/17 09:00 (Ferrous Sulfate) 325 mg BID PO 01/17/17 09:00 01/24/17 09:01 (Folate) 1 mg DAILY PO 01/17/17 09:00 01/24/17 09:00 (Nephrocaps) 1 cap DAILY PO 01/17/17 09:00 01/24/17 09:01 (Vitamin B1) 100 mg DAILY PO 01/17/17 09:00 01/24/17 09:01 Ondansetron HCl 4 mg 4 mg Q8HR PRN IVP 01/16/17 22:00 (NS 1000 ml Inj) 1,000 ml @ 0 mls/hr Q0M PRN IV 01/17/17 08:26 Heparin Sodium (Porcine) 8000 units 8,000 units UNSCH PRN IVF 01/17/17 08:30 Sodium Chloride 1,000 ml @ 200 mls/hr Q5H PRN IV 01/17/17 08:26 (NS 1000 ml Inj) 1,000 ml @ 0 mls/hr Q0M PRN IV 01/17/17 08:26 (Mannitol Inj) 12.5 gm UNSCH PRN IV 01/17/17 08:30 (Albumin 25% Inj) 25 gm UNSCH PRN IV 01/17/17 08:30 (NS Flush) 5 ml UNSCH PRN IV FLUSH 01/17/17 08:30 (Heparin Inj) UNSCH PRN .XX 01/17/17 08:30 01/22/17 11:43 (Gentamicin (Dialysis) Inj) 20 mg UNSCH PRN IV 01/17/17 08:30 01/22/17 11:43 (Zofran Inj) 4 mg UNSCH PRN IV 01/17/17 08:30 (Tylenol) 650 mg UNSCH PRN PO 01/17/17 08:30 (Benadryl) 25 mg UNSCH PRN PO 01/17/17 08:30 (Nitrostat Sl) 0.4 mg UNSCH PRN SL 01/17/17 08:30 (Catapres) 0.1 mg UNSCH PRN PO 01/17/17 08:30 (Epogen Inj) 4,000 units UNSCH PRN IV 01/17/17 08:30 01/22/17 09:51 (Gelfoam 12 Mm/7 Mm Top) 1 foam UNSCH PRN TOP 01/17/17 08:30 (Lopressor) 50 mg Q12HR PO 01/17/17 21:00 01/23/17 21:10 (Lasix) 40 mg DAILY PO 01/20/17 09:00 01/24/17 09:01 (Atarax) 25 mg Q8H PRN PO 01/19/17 15:00 01/19/17 18:24 (KCl) 20 meq DAILY PO 01/22/17 09:00 01/24/17 09:01 (Roxicodone) 20 mg Q6H PRN PO 01/22/17 17:57 01/24/17 17:15 Objective Vital Signs Date Time Temp Pulse Resp B/P Pulse Ox O2 Delivery O2 Flow Rate FiO2 01/24/17 16:00 Room Air 01/24/17 16:00 98.2 62 18 124/70 97 01/24/17 12:00 Room Air 01/24/17 12:00 97.8 61 18 109/57 96 01/24/17 08:00 Room Air 01/24/17 08:00 98.5 54 18 116/62 94 01/24/17 04:00 98.2 63 20 109/66 96 01/24/17 00:00 98.0 60 20 115/58 96 01/23/17 20:40 Room Air 01/23/17 20:00 98.7 64 18 138/72 96 I/O 01/23/17 01/23/17 01/23/17 01/24/17 01/24/17 01/24/17 07:00 15:00 23:00 07:00 15:00 23:00 Intake Total 0 ml 420 ml 2 ml 0 ml 600 ml Output Total 350 ml 630 ml 25 ml 420 ml Balance 0 ml 70 ml -628 ml -25 ml 180 ml Intake Oral 0 ml 420 ml 0 ml 0 ml 600 ml IV Total 0 ml 2 ml Output Urine Total 350 ml 500 ml 0 ml 420 ml Chest Tube Drainage Total 130 ml 25 ml # Voids 0 # Bowel Movements 0 0 0 0 1 Gen.: Lying in bed in no acute distress Cardiovascular: Regular rate and rhythm without murmurs Lungs: Clear to auscultation bilaterally Chest: Right subclavian Vas-Cath. Left upper chest chest tube in place Abdomen: Benign Lower extremities reveal no appreciable edema or calf tenderness Result Diagram: 01/24/17 0606 01/24/17 0606 Imaging Last [address] 01/23/17 0000 Signed Impressions: Service Date/Time: Monday, January 23, 2017 12:26 - CONCLUSION: 1. There continues to be a interstitial infiltrate in the right upper lung which is mildly improved compared to the prior study. 2. Left apical chest tube remains in place surrounded by parenchymal consolidation and a few air bubbles. No pneumothorax. 3. Stable parenchymal infiltrate and pleural thickening in the left lung base. Myron French MD Assessment and Plan Problem List: (1) Acute kidney injury Status: Acute Plan: hemodialysis on hold. Repeat laboratory studies in the morning. Further hemodialysis per nephrology (2) Empyema Status: Acute Plan: S/P Decortication. S/P chest tube placement. the patient had residual fluid in area in the left upper chest. I spoke with Dr. Chapman and he states that they instilled a thrombolytic agent and to the left upper chest and then resume suction. The chest tube put out approximately 150 cc. His plan is to repeat the CT scan in the morning and depending on results decide whether to discontinue the chest tube (3) Hypertension Status: Chronic Plan: BP under good control with current medication (4) Ribs, multiple fractures Status: Acute Plan: Pain under better control. Weaning Oxycodone (5) Generalized anxiety disorder Status: Chronic Plan: Continue Lorazepam. Dose has been decreased due to decreased renal function. Cont Buspirone and Escitalopram (6) Anemia Status: Acute Plan: Patient status post transfusions. Anemia multifactorial including blood loss from rib fracture and hemothorax and acute kidney injury. Patient receiving Iron, thiamine and B12 supplements. Will receive Procrit per Nephrology (7) Hypokalemia Status: Resolved Plan: Corrected. Cont KCL and follow K+ level Assessment and Plan the patient and his ex- reports that the inpatient alcohol and drug rehabilitation center in [place] will not take him if he requires hemodialysis. Disposition at the time of discharge will be decided based on his need for hemodialysis. The patient is now willing to go down to the rehabilitation Center if they will accept him. Problem Qualifiers (1) Hypertension: Qualified Code: I10 - Essential hypertension (2) Ribs, multiple fractures: Qualified Code: S22.42XG - Closed fracture of multiple ribs of left side with delayed healing, subsequent encounter (3) Anemia: Qualified Code: D50.8 - Other iron deficiency anemia Kashmir Zamudio MD January 24, 2017 18:24
[2017-01-24 19:54] VITALS: BP 142/75; PULSE 59; RESP 16; TEMP 98.3; O2SAT 96
[2017-01-25] VITALS (7 sets, daily range): BP systolic 105–132; BP diastolic 55–76; PULSE 52–69; RESP 16–18; TEMP 97.6–98.2; O2SAT 62–98
[2017-01-25] MEDS: busPIRone HCL 5 MG TAB PO SCH ×3 (05:50→20:28)
[2017-01-25] MEDS: LORazepam 1 MG TAB PO SCH ×2 (08:51→20:28)
[2017-01-25] MEDS: DOCUSATE SODIUM 100 MG CAP PO SCH ×2 (08:51→20:28)
[2017-01-25] MEDS: ESCITALOPRAM OXALATE 10 MG TAB PO SCH (08:51)
[2017-01-25] MEDS: POTASSIUM CHLORIDE 20 MEQ CONTROLLED RELEASE TAB PO SCH (08:51)
[2017-01-25] MEDS: THIAMINE HCL 100 MG TAB PO SCH (08:51)
[2017-01-25] MEDS: VITAMIN B CMPLX/VITC/FOLIC AC CAP PO SCH (08:51)
[2017-01-25] MEDS: FERROUS SULFATE 325 MG (65 MG ELEMENTAL IRON) TAB PO SCH ×2 (08:51→20:28)
[2017-01-25] MEDS: FUROSEMIDE 40 MG TAB PO SCH (08:51)
[2017-01-25] MEDS: SODIUM CHLORIDE 0.9% FLUSH 10 ML FLUSH IV FLUSH SCH ×2 (08:51→20:30)
[2017-01-25] MEDS: FOLIC ACID 1 MG TAB PO SCH (08:51)
[2017-01-25] MEDS: METOPROLOL TARTRATE 50 MG TAB PO SCH ×2 (08:52→20:28)
[2017-01-25 09:24] LABS: POTASSIUM 4.2 MEQ/L (3.5-5.1)
--- NOTE | 2017-01-25 10:53 | RADRPT ---
EXAM DATE/TIME: 01/23/2017 00:00 COMPARISON: CT THORAX W/O CONTRAST, January 25, 2017, 10:25. INDICATIONS : empyema/hemothorax MEDICAL HISTORY : smoker, fractured ribs,anxiety, HTN, GERD SURGICAL HISTORY : Decortication, hernia repair, chest tube ENCOUNTER: Subsequent ACUITY: 2 weeks PAIN SCORE: 10/10 Right upper chest ACCESS SITE: Left apical chest tube MEDICATION(S): 1.) 10 mg TPA in 50 cc normal saline FINDINGS: Latest CT shows resolution of the previously identified left apical pneumothorax. There is still some soft tissue/fluid density surrounding the Van loop catheter with no recent output. Will lock the ca theter with 10 mg of TPA and left to dwell for the next 6 hours to facilitate additional drainage. CONCLUSION: TPA thrombolsis of residual consolidation in the left lung apex as above. Carlos Chapman MD on January 25, 2017 at 10:43 Board Certified Radiologist. This report was verified electronically.
--- NOTE | 2017-01-25 11:05 | RADRPT ---
EXAM DATE/TIME: 01/25/2017 10:25 [facility] COMPARISON: CT THORAX W/O CONTRAST, January 23, 2017, 12:26. INDICATIONS : Follow up pneumothorax. RADIATION DOSE: 9.85 CTDIvol (mGy) MEDICAL HISTORY : Cardiovascular disease. Hypertension. Renal disease, end stage. SURGICAL HISTORY : None. ENCOUNTER: Subsequent ACUITY: 1 week PAIN SCALE: 0/10 LOCATION: chest TECHNIQUE: Volumetric scanning of the chest was performed. Using automated exposure control and adjustment of t he mA and/or kV according to patient size, radiation dose was kept as low as reasonably achievable to obtain optimal diagnostic quality images. FINDINGS: LUNGS: Left apical chest tube is again seen. Decreasing consolidation/fluid surrounding the left-sided chest tube. No evidence of pneumothorax. Peripheral left lower lung consolidation and adjacent pleural opa city unchanged. Groundglass opacity in the right upper lung is unchanged. MEDIASTINUM: Unchanged. AXILLAE: Unchanged. MUSCULOSKELETAL: Unchanged. MISCELLANEOUS: Upper abdomen unchanged. CONCLUSION: 1. Decrease in consolidation/fluid surrounding the left apical chest tube. No evidence of pneumothora x. 2. Left lung base opacity in right upper lung opacity unchanged. Donato Wallace MD on January 25, 2017 at 11:00 Board Certified Radiologist. This report was verified electronically.
--- NOTE | 2017-01-25 12:43 | RADRPT ---
EXAM DATE/TIME: 01/25/2017 12:03 [facility] COMPARISON: CHEST SINGLE AP, January 19, 2017, 12:25. INDICATIONS : Chest tube removal. MEDICAL HISTORY : None. SURGICAL HISTORY : None. ENCOUNTER: Initial ACUITY: 1 day PAIN SCORE: 0/10 LOCATION: Left chest FINDINGS: Portable upright expiratory view of the chest following left chest tube removal demonstrates no pneum othorax. There is asymmetric opacity at the apex the left hemithorax. Lungs are underinflated with mi ld bibasilar opacity, left greater than right. Dialysis catheter remains present on the right. CONCLUSION: No pneumothorax is visualized following left chest tube removal. There is stable opacity at the left lung base and apex of the left hemithorax. Francisco Arcos MD on January 25, 2017 at 12:40 Board Certified Radiologist. This report was verified electronically.
--- NOTE | 2017-01-25 13:26 | HHI.NPPN ---
Subjective Renal Failure: Acute History of Present Illness 56 year old with Empyema L lung ARF on Hemodialysis Additional Remarks CT removed doing well good UOP Review of Systems Musculoskeletal MS: Pain/Stiffness Objective Data Data 01/24/17 01/25/17 19:00 07:00 Intake Total 600 ml 966 ml Output Total 420 ml 1695 ml Balance 180 ml -729 ml Intake Oral 600 ml 960 ml IV Total 6 ml Output Urine Total 420 ml 1675 ml Chest Tube Drainage Total 20 ml # Bowel Movements 1 1 Vital Signs Date Time Temp Pulse Resp B/P Pulse Ox O2 Delivery O2 Flow Rate FiO2 01/25/17 12:00 97.6 62 18 131/76 62 01/25/17 08:00 97.9 52 18 105/65 90 01/25/17 08:00 Room Air 01/25/17 05:58 97.9 54 16 124/71 98 01/25/17 04:15 Room Air 01/25/17 00:08 97.7 58 16 115/58 95 01/24/17 23:50 Room Air 01/24/17 20:35 Room Air 01/24/17 19:54 98.3 59 16 142/75 96 01/24/17 16:00 Room Air 01/24/17 16:00 98.2 62 18 124/70 97 -: 01/24/17 0606 01/25/17 0753 Physical Exam General Appearance: Well Developed, Well Nourished Neck Neck Exam: Neck Supple Pulmonary Resp Exam: Clear Bilaterally, Breath Sounds Equal Cardiology CV Exam: Regular, Normal Sinus Rhythm Gastrointestinal/Abdomen GI Exam: Soft, Non-Tender, Bowel Sounds Present Integumentary Skin Exam: Clear Extremeties Extremities Exam: No Edema Neurologic Neuro Exam: Alert Assessment/Plan Problem List: (1) Acute kidney injury Plan: He is doing better Cr declined I will request taking out PermCath as no longer on hemodialysis watch salt and Potassium Follow up as out patient in take while ARF is resolving drink water weekly BMP can be done (2) Ribs, multiple fractures Plan: Patient chest tube removed (3) Empyema Plan: Recently treated no growth CT taken out (4) Hypertension Plan: Continue monitor while in the hospital Problem Qualifiers (1) Ribs, multiple fractures: Qualified Code: S22.42XG - Closed fracture of multiple ribs of left side with delayed healing, subsequent encounter (2) Hypertension: Qualified Code: I10 - Essential hypertension Haider James MD Jan 25, 2017 13:26
[2017-01-25] MEDS ORDERED: BUMETANIDE INJ 1 MG/4 ML VIAL IV PUSH ONE (13:45)
[2017-01-25] MEDS ORDERED: ALBUMIN HUMAN 25% 25 GM/100 ML BAGP IV SCH (13:45)
[2017-01-25] MEDS ORDERED: BUMETANIDE INJ 1 MG/4 ML VIAL IV PUSH SCH (18:00)
--- NOTE | 2017-01-25 18:09 | RADRPT ---
EXAM DATE/TIME: 01/25/2017 12:04 [facility] COMPARISON: No previous studies available for comparison. INDICATIONS : pnuemothorax DEVICE(S): 1.) Vaseline occlusive dressing PROCEDURE : Chest tube removal. Using aseptic technique the previously placed chest tube was easily removed in one piece and Vaseline gauze and sterile dressing was applied. Chest radiograph is to be obtained. CONCLUSION: Uncomplicated chest tube removal. Carlos Chapman MD on January 25, 2017 at 18:08 Board Certified Radiologist. This report was verified electronically.
--- NOTE | 2017-01-25 19:51 | HHI.PR ---
Subjective Remarks Chest tube out. No SOB. Pain controlled. BP under good control. UOP good. + BM Creatinine lower today despite no dialysis Current Medications Medications (Trade) Dose Ordered Sig/Jayson Route Start Time Stop Time Status Last Admin (NS Flush) 2 ml UNSCH PRN IV FLUSH 01/16/17 21:15 01/20/17 14:10 (NS Flush) 2 ml BID IV FLUSH 01/17/17 09:00 01/25/17 08:51 (Tylenol) 650 mg Q4H PRN PO 01/16/17 21:15 (Narcan Inj) 0.4 mg UNSCH PRN IV 01/16/17 21:15 (Colace) 100 mg BID PO 01/17/17 09:00 01/23/17 21:10 (Ativan) 1 mg Q12HR PO 01/16/17 21:15 01/25/17 08:51 (Buspar) 5 mg Q8HR PO 01/16/17 22:00 01/25/17 13:21 (Lexapro) 10 mg DAILY PO 01/17/17 09:00 01/25/17 08:51 (Ferrous Sulfate) 325 mg BID PO 01/17/17 09:00 01/25/17 08:51 (Folate) 1 mg DAILY PO 01/17/17 09:00 01/25/17 08:51 (Nephrocaps) 1 cap DAILY PO 01/17/17 09:00 01/25/17 08:51 (Vitamin B1) 100 mg DAILY PO 01/17/17 09:00 01/25/17 08:51 (Zofran Inj) 4 mg Q8HR PRN IVP 01/16/17 22:00 (Epogen Inj) 4,000 units UNSCH PRN IV 01/17/17 08:30 01/22/17 09:51 (Lopressor) 50 mg Q12HR PO 01/17/17 21:00 01/24/17 21:28 (Lasix) 40 mg DAILY PO 01/20/17 09:00 01/25/17 08:51 (Atarax) 25 mg Q8H PRN PO 01/19/17 15:00 01/19/17 18:24 (KCl) 20 meq DAILY PO 01/22/17 09:00 01/25/17 08:51 (Roxicodone) 20 mg Q6H PRN PO 01/22/17 17:57 01/25/17 18:03 Objective Vital Signs Date Time Temp Pulse Resp B/P Pulse Ox O2 Delivery O2 Flow Rate FiO2 01/25/17 16:00 97.7 57 18 121/63 96 01/25/17 12:00 97.6 62 18 131/76 96 01/25/17 08:00 97.9 52 18 105/65 90 01/25/17 08:00 Room Air 01/25/17 05:58 97.9 54 16 124/71 98 01/25/17 04:15 Room Air 01/25/17 00:08 97.7 58 16 115/58 95 01/24/17 23:50 Room Air 01/24/17 20:35 Room Air 01/24/17 19:54 98.3 59 16 142/75 96 I/O 01/24/17 01/24/17 01/24/17 01/25/17 01/25/17 01/25/17 07:00 15:00 23:00 07:00 15:00 23:00 Intake Total 0 ml 600 ml 724 ml 242 ml 360 ml Output Total 25 ml 420 ml 465 ml 1230 ml 700 ml Balance -25 ml 180 ml 259 ml -988 ml -340 ml Intake Oral 0 ml 600 ml 720 ml 240 ml 360 ml IV Total 4 ml 2 ml Output Urine Total 0 ml 420 ml 450 ml 1225 ml 700 ml Chest Tube Drainage Total 25 ml 15 ml 5 ml # Bowel Movements 0 1 1 0 1 CV: RRR Lungs: CTA Ext: No edema Result Diagram: 01/24/17 0606 01/25/17 0753 Assessment and Plan Problem List: (1) Acute kidney injury Status: Acute Plan: Resolving. permacath to be removed tomorrow am. Close outpatient follow -up of renal function (2) Empyema Status: Acute Plan: S/P Decortication. S/P chest tube placement. Chest tube out (3) Hypertension Status: Chronic Plan: BP under good control with current medication (4) Ribs, multiple fractures Status: Acute Plan: Pain under better control. Weaning Oxycodone (5) Generalized anxiety disorder Status: Chronic Plan: Continue Lorazepam. Dose has been decreased due to decreased renal function. Cont Buspirone and Escitalopram (6) Anemia Status: Acute Plan: Patient status post transfusions. Anemia multifactorial including blood loss from rib fracture and hemothorax and acute kidney injury. Patient receiving Iron, thiamine and B12 supplements. Will receive Procrit per Nephrology (7) Hypokalemia Status: Resolved Plan: Corrected. Cont KCL and follow K+ level Discharge Planning Discharge home tomorrow. Patient states plans to go home and then in 2 weeks go to rehab in [place]. Will provide limited supply narcotic analgesics at discharge Problem Qualifiers (1) Hypertension: Qualified Code: I10 - Essential hypertension (2) Ribs, multiple fractures: Qualified Code: S22.42XG - Closed fracture of multiple ribs of left side with delayed healing, subsequent encounter (3) Anemia: Qualified Code: D50.8 - Other iron deficiency anemia Kashmir Zamudio MD Jan 25, 2017 19:51
[2017-01-26] MEDS: busPIRone HCL 5 MG TAB PO SCH (05:00)
[2017-01-26 05:05] VITALS: BP 121/60; PULSE 51; RESP 16; TEMP 97.5; O2SAT 98
[2017-01-26 08:00] VITALS: BP 112/61; PULSE 55; RESP 18; TEMP 97.6; O2SAT 96
[2017-01-26] MEDS: SODIUM CHLORIDE 0.9% FLUSH 10 ML FLUSH IV FLUSH SCH (08:38)
[2017-01-26] MEDS: METOPROLOL TARTRATE 50 MG TAB PO SCH (08:56)
[2017-01-26] MEDS: LORazepam 1 MG TAB PO SCH (08:56)
[2017-01-26] MEDS: POTASSIUM CHLORIDE 20 MEQ CONTROLLED RELEASE TAB PO SCH (08:57)
[2017-01-26] MEDS: FOLIC ACID 1 MG TAB PO SCH (08:57)
[2017-01-26] MEDS: FERROUS SULFATE 325 MG (65 MG ELEMENTAL IRON) TAB PO SCH (08:57)
[2017-01-26] MEDS: VITAMIN B CMPLX/VITC/FOLIC AC CAP PO SCH (08:57)
[2017-01-26] MEDS: ESCITALOPRAM OXALATE 10 MG TAB PO SCH (08:57)
[2017-01-26] MEDS: THIAMINE HCL 100 MG TAB PO SCH (08:57)
[2017-01-26] MEDS: FUROSEMIDE 40 MG TAB PO SCH (08:58)
[2017-01-26] MEDS: DOCUSATE SODIUM 100 MG CAP PO SCH (08:58)
[2017-01-26] MEDS ORDERED: LIDOCAINE 1%/EPINEPHrine 1:100,000 SOLN 20 ML VIAL ONE (09:23)
--- NOTE | 2017-01-26 10:10 | PD.RAD ---
Post Procedure Progress Note Pre Procedure Diagnosis: (1) Acute kidney injury Post Procedure Diagnosis: (1) Acute kidney injury Procedure Date: Jan 26, 2017 Supervising Radiologist: Robert Pearson Proceduralist/Assist: Oc Burgos RT(R), RT Shala(R)() Estimated blood loss: 0 ml Anesthesia: Local Plan of Activity Patient to Unit: ROPU Patient Condition: Good See PACS Report for procedural detail/treatment Robert Pearson MD Jan 26, 2017 10:10
--- NOTE | 2017-01-26 10:38 | HHI.PR ---
Subjective Remarks Perma-cath out. OOB in chair. No SOB. BP under good control. PO intake good. UOP good. Ambulating independently. Current Medications Medications (Trade) Dose Ordered Sig/Jayson Route Start Time Stop Time Status Last Admin (NS Flush) 2 ml UNSCH PRN IV FLUSH 01/16/17 21:15 01/20/17 14:10 (NS Flush) 2 ml BID IV FLUSH 01/17/17 09:00 01/25/17 20:30 (Tylenol) 650 mg Q4H PRN PO 01/16/17 21:15 (Narcan Inj) 0.4 mg UNSCH PRN IV 01/16/17 21:15 (Colace) 100 mg BID PO 01/17/17 09:00 01/23/17 21:10 (Ativan) 1 mg Q12HR PO 01/16/17 21:15 01/26/17 08:56 (Buspar) 5 mg Q8HR PO 01/16/17 22:00 01/26/17 05:00 (Lexapro) 10 mg DAILY PO 01/17/17 09:00 01/26/17 08:57 (Ferrous Sulfate) 325 mg BID PO 01/17/17 09:00 01/26/17 08:57 (Folate) 1 mg DAILY PO 01/17/17 09:00 01/26/17 08:57 (Nephrocaps) 1 cap DAILY PO 01/17/17 09:00 01/26/17 08:57 (Vitamin B1) 100 mg DAILY PO 01/17/17 09:00 01/26/17 08:57 (Zofran Inj) 4 mg Q8HR PRN IVP 01/16/17 22:00 (Epogen Inj) 4,000 units UNSCH PRN IV 01/17/17 08:30 01/22/17 09:51 (Lopressor) 50 mg Q12HR PO 01/17/17 21:00 01/26/17 08:56 (Lasix) 40 mg DAILY PO 01/20/17 09:00 01/26/17 08:58 (Atarax) 25 mg Q8H PRN PO 01/19/17 15:00 01/19/17 18:24 (KCl) 20 meq DAILY PO 01/22/17 09:00 01/26/17 08:57 (Roxicodone) 20 mg Q6H PRN PO 01/22/17 17:57 01/26/17 05:03 Objective Vital Signs Date Time Temp Pulse Resp B/P Pulse Ox O2 Delivery O2 Flow Rate FiO2 01/26/17 08:00 97.6 55 18 112/61 96 01/26/17 07:35 Room Air 01/26/17 05:05 97.5 51 16 121/60 98 01/25/17 23:52 97.6 54 16 114/55 97 01/25/17 20:30 Room Air 01/25/17 19:55 98.2 69 16 132/66 95 01/25/17 16:00 97.7 57 18 121/63 96 01/25/17 12:00 97.6 62 18 131/76 96 I/O 01/25/17 01/25/17 01/25/17 01/26/17 01/26/17 01/26/17 07:00 15:00 23:00 07:00 15:00 23:00 Intake Total 242 ml 360 ml 480 ml 240 ml Output Total 1230 ml 700 ml 500 ml 600 ml Balance -988 ml -340 ml -20 ml -360 ml Intake Oral 240 ml 360 ml 480 ml 240 ml IV Total 2 ml 0 ml Output Urine Total 1225 ml 700 ml 500 ml 600 ml Chest Tube Drainage Total 5 ml # Bowel Movements 0 1 0 0 CV: RRR Lungs: CTA Left upper chest: previous CT site closed. No erythema, bleeding or discharge Ext: No edema Result Diagram: 01/24/17 0606 01/25/17 0753 Assessment and Plan Problem List: (1) Acute kidney injury Status: Acute Plan: Resolving. Close outpatient follow-up of renal function (2) Empyema Status: Acute Plan: S/P Decortication. S/P chest tube placement. Chest tube out. Clinically asymptomatic. Will follow as an outpatient (3) Hypertension Status: Chronic Plan: BP under good control with current medication (4) Ribs, multiple fractures Status: Acute Plan: Pain under better control. Weaning Oxycodone. Will provide patient with Rx for Oxycodone for 2 weeks. (5) Generalized anxiety disorder Status: Chronic Plan: Continue Lorazepam, Buspirone and Escitalopram (6) Anemia Status: Acute Plan: Patient status post transfusions. H&H improving. Cont Iron, thiamine and B12 supplements. Follow H&H as outpatient (7) Hypokalemia Status: Resolved Plan: Corrected. Cont KCL and follow K+ level Discharge Planning Home today Problem Qualifiers (1) Hypertension: Qualified Code: I10 - Essential hypertension (2) Ribs, multiple fractures: Qualified Code: S22.42XG - Closed fracture of multiple ribs of left side with delayed healing, subsequent encounter (3) Anemia: Qualified Code: D50.8 - Other iron deficiency anemia Kashmir Zamudio MD Jan 26, 2017 10:37
--- NOTE | 2017-01-26 10:40 | HHI.FF ---
Face to Face Verification Diagnosis: (1) Empyema (2) Acute kidney injury (3) Hypertension (4) Generalized anxiety disorder (5) Anemia (6) Ribs, multiple fractures Home Health Nursing Order: Medical education Signs/symptoms of disease process Medication education-adverse effect Nursing assessment with vital signs Instructions: Monitor respiratory status. Monitor previous Perma-cath and CT sites until healed. Home Health Aide Order: To Assist In: Bathing and personal care I have seen patient Narendra Raphael on 01/26/17. My clinical findings support the need for the requested home health care services because: Deconditioned w/ increased weakness Med compliance is questionable I certify that my clinical findings support that this patient is homebound because: Post-op weakness Kashmir Zamudio MD Jan 26, 2017 10:40
[2017-01-26] MEDS ORDERED: BUSP5TAB PO (11:09)
[2017-01-26] MEDS ORDERED: DOCU1CAP39 PO (11:09)
[2017-01-26] MEDS ORDERED: OXYC-395 PO (11:09)
[2017-01-26] MEDS ORDERED: GNP100TA3 PO (11:09)
[2017-01-26] MEDS ORDERED: FERR325T20 PO (11:09)
[2017-01-26] MEDS ORDERED: Folic Acid PO (11:09)
[2017-01-26] MEDS ORDERED: POTA20TA5 PO (11:09)
[2017-01-26] MEDS ORDERED: METO-309 PO (11:09)
[2017-01-26] MEDS ORDERED: ESCI10TA PO (11:09)
[2017-01-26] MEDS ORDERED: LORA-474 PO (11:09)
[2017-01-26] MEDS ORDERED: FURO40TA PO (11:09)
--- NOTE | 2017-01-29 09:09 | RADRPT ---
EXAM DATE/TIME: 01/26/2017 00:00 [facility] COMPARISON: No previous studies available for comparison. INDICATIONS : Patient presents with a history of acute kidney in need of dialysis catheter removal which is no long er needed. MEDICAL HISTORY : GERD HTN Hyperlipidemia Hx of lower gastrointestinal hemorrhage Hx of sleep apnea SURGICAL HISTORY : Decortication procedure done within the last two weeks Chest tube placement ENCOUNTER: Initial ACUITY: 1 week PAIN SCORE: 0/10 LOCATION: N/A IMAGE SERIES: 0 MEDICATION(S): 1.) 5 units Lidocaine with epinephrine SC PROCEDURE : 1. PermaCath removal. The risks, benefits and alternatives to the procedure were explained and verbal and written consent w as obtained. The site was prepped in sterile fashion. Full sterile technique was used, including ca p, mask, sterile gloves and gown and a large sterile sheet. Hand hygiene and 2% chlorhexidine and/or betadine/alcohol prep was utilized per protocol for cutaneous antisepsis. The skin and subcutaneous tissues were infiltrated with local anesthetic solution. The tract was anesthetized with 1% Lidocaine using. The Permcath was dissected from the subcutaneous tissues and easily removed in one piece. Manual pressure was applied to the venotomy site until hem ostasis was obtained. Sterile dressing was applied. The patient tolerated the procedure well and there were no complications. CONCLUSION: Uncomplicated Permcath removal. Robert Pearson MD on January 29, 2017 at 9:07 Board Certified Radiologist. This report was verified electronically.
== END 2017-01-26 12:36 | disposition home or self-care (01) | DRG 683 ==
LOC: N04A 19:49
PROVIDERS: ADMIT Family Medicine; ATTEND Family Medicine
PROC: 5A1D60Z (ICD-10-PCS; principal; 2017-01-17)
PROC: 0W9B30Z Drainage of Left Pleural Cavity with Drainage Device, Percutaneous Approach (ICD-10-PCS; 2017-01-17)
DX: N17.9 Acute kidney failure, unspecified (principal); J90 Pleural effusion, not elsewhere classified; I10 Essential (primary) hypertension; F10.20 Alcohol dependence, uncomplicated; E78.5 Hyperlipidemia, unspecified; D50.9 Iron deficiency anemia, unspecified; K21.9 Gastro-esophageal reflux disease without esophagitis; F41.9 Anxiety disorder, unspecified; R60.9 Edema, unspecified; S22.42XD Multiple fractures of ribs, left side, subsequent encounter for fracture with routine healing; W19.XXXD Unspecified fall, subsequent encounter; G47.30 Sleep apnea, unspecified; F17.210 Nicotine dependence, cigarettes, uncomplicated; K59.00 Constipation, unspecified; F41.1 Generalized anxiety disorder; E87.6 Hypokalemia; Z80.42 Family history of malignant neoplasm of prostate; Z99.2 Dependence on renal dialysis; Z83.3 Family history of diabetes mellitus; Z82.49 Family history of ischemic heart disease and other diseases of the circulatory system
CPT/HCPCS: 32557; 32561; 36589; 71010; 71250; 80048; 80053; 81001; 85025; 85610; 85730; 87070; 87205; 90935; 94010; 94150; 94640; 94664; 96374; 96375; 99152; 99153; C1729; C1769; J1170; J1580; J1644; J2250; J2270; J2997; J3010; Q4081